=== PATIENT | female | born 1955 | race Caucasian/White ===

== ENCOUNTER 2021-07-21 20:40 | Emergency (ER) | payer MEDICARE, OTHER, SELFPAY ==
[2021-07-21 20:40] VITALS: BP 176/71; PULSE 66; RESP 18; TEMP 36.6; O2SAT 95; BMI 33.3
--- NOTE | 2021-07-21 21:35 | RAD_ITS ---
STUDY: X-RAY - LUMBAR SPINE REASON FOR EXAM: Female, 65 years old. Injury/Pain TECHNIQUE: AP, lateral, coned-down lateral view(s) of the lumbar spine were obtained. COMPARISON: None FINDINGS: Normal lumbar lordosis. There is no substantial scoliosis. There is a normal alignment of the vertebrae. There is multilevel endplate spondylosis of the lumbar vertebrae, moderate to severe L4-5 and L5-S1. There is multi-level degenerative disc disease with multi-level disc space narrowing, most prominent at L4-5 and L5-S1. There is no demonstrated fracture. There is atherosclerotic calcification of the abdominal aorta without a demonstrated aneurysm. Right upper quadrant surgical clips. RAD/Lumbar Spine 2 or 3 Views IMPRESSION: No acute abnormal finding in the lumbar spine. Degenerative changes of the spine, as detailed above. Electronically Signed: Nick Cage MD at 22:29 EDT Tel , Service support ,
[2021-07-21] MEDS: Morphine 4 MG/ML Syringe IM (22:07)
--- NOTE | 2021-07-21 23:38 | EDS_ITS ---
HPI History of Present Illness Chief Complaint: Back Informant: patient Onset/Context/Timing Onset: Weeks Timing: Continuous Quality: Sharp and Aching Location: Lumbar Current Severity: Severe Worsened by: improves with Movement Relieved by: Nothing Associated Symptoms Associated Symptoms: Negative for Numbness, Tingling, Radiation to Right Leg, Radiation to Left Leg, Fever, Abdominal Pain, Dysuria, Unable to Ambulate, Unable to Transfer, Urinary Retention, Urinary Incontinence, Constipation and Fecal Incontinence Narrative Narrative: Patient presents with back pain that became worse today. Patient states she has had back pain for several weeks. Patient states it has been constant. Patient states the pain is over the lower lumbar area. Patient states her pain is worse with any movement. Patient denies any radiation of the pain. Patient denies any abdominal pain. Patient denies any bowel or bladder changes. Patient denies any saddle anesthesia. Patient denies any trauma or injury. [facility] Medical History Epilepsy Home Medications citalopram 20 mg PO DAILY 07/01/16 [History Last Taken Unknown] famotidine 20 mg PO DAILY 07/01/16 [History Last Taken Unknown] levetiracetam 500 mg PO BID 07/01/16 [History Last Taken Unknown] levothyroxine 137 mcg PO DAILY 07/01/16 [History Last Taken Unknown] oxycodone-acetaminophen 1 tab PO Q4H PRN PRN #12 tab 07/01/16 [Rx Last Taken Unknown] phenytoin sodium extended 100 mg PO TID 07/01/16 [History Last Taken Unknown] triamterene-hydrochlorothiazid 1 cap PO DAILY 07/01/16 [History Last Taken Unknown] Allergy/AdvReac Type Severity Reaction Status Date / Time Penicillins Allergy Rash Verified 07/21/21 20:43 no surgical history Social History Smoking Status: Never smoker ROS ROS ED Constitutional Constitutional ED: Denies chills or fever(s) Eyes Eyes: Denies blurry vision or change in vision ENT ENT ED: Denies rhinorrhea or sore throat Cardiovascular Cardiovascular: Denies chest pain or palpitations Respiratory/Chest Respiratory/Chest: Denies cough or dyspnea Gastrointestinal Gastrointestinal: Denies nausea or vomiting Genitourinary Genitourinary ED: Denies dysuria or hematuria Musculoskeletal Musculoskeletal: Reports back pain; Denies neck pain Integumentary Denies abscess or rash Neurologic Neurologic: Denies headache(s) or weakness Allergic/Immunologic Allergic/Immunologic ED: Denies mouth swelling or urticaria EXAM Physical Exam Const Vital Signs: 07/21/21 20:40 Temperature 97.9 F Temperature Source Temporal Pulse Rate 66 Respiratory Rate 18 Blood Pressure 176/71 H Blood Pressure Mean 106 Pulse Ox 95 Oxygen Delivery Method Room Air Positive well nourished and well developed General Appearance ED: well developed HEENT Reports moist mucous membranes Neck supple and no JVD Back/Spine Back/Spine Narrative: There is tenderness over the lower lumbar spine and paraspinal muscles. There is no edema or ecchymosis. There is no bony crepitance or step-off. Range of motion was limited in all motions of the lumbar spine secondary to pain. Strength is 5/5 bilaterally in the lower extremities. There are no sensory deficits noted. Neuro oriented x3 and no sensory deficits noted Sensorium / Orientation: alert Motor Exam: strength 5/5 throughout Psych mental status grossly normal MDM MDM MDM Narrative Medical decision making narrative: X-rays of the lumbar spine were obtained. There are 3 views. On my interpretation, there are degenerative changes. There is no acute fracture or spondylolisthesis noted. Radiologist also interpreted the x-rays and agrees. Patient was given an injection of morphine here. Pat ient was feeling better on reevaluation. Patient was instructed use ice to the area. Patient was instructed to follow-up with her primary care physician in 5 to 7 days. Patient understood and was agreeable with the plan. All questions were answered. Radiography Diagnostic Testing: Radiology Impression Lumbar Spine X-Ray 07/21/21 21:35 IMPRESSION: No acute abnormal finding in the lumbar spine. Degenerative changes of the spine, as detailed above. Electronically Signed: Nick aCge MD at 22:29 EDT Tel , Service support , Discharge Plan Triage Chief Complaint: Back ED Provider: Jay Cortez Dx/Rx/DC Orders Clinical Impression: Acute low back pain Instructions: ED Back Pain (Acute or Chronic) Prescriptions: No Action levothyroxine 137 MCG tablet 137 mcg PO DAILY RF: 0 levetiracetam 500 MG tablet 500 mg PO BID RF: 0 phenytoin sodium extended 100 MG capsule 100 mg PO TID RF: 0 triamterene-hydrochlorothiazid 1 CAP capsule 1 cap PO DAILY RF: 0 citalopram 20 MG tablet 20 mg PO DAILY RF: 0 famotidine 20 MG tablet 20 mg PO DAILY RF: 0 oxycodone-acetaminophen 1 TABLET tablet 1 tab PO Q4H PRN PRN (Reason: Pain) Qty: 12 RF: 0 Primary Care Provider: Leland Correia Referrals: Leland Correia DO [Primary Care Provider] - 3-5 Days Disposition Disposition: Home, Self Care Discharge Date/Time: 07/21/21 23:54
== END 2021-07-21 23:54 | disposition home or self-care (01) ==
PROVIDERS: Emergency Provider Emergency Medicine; PCP Family Medicine
DX: M54.5 Low back pain (principal)
CPT/HCPCS: 72100; 96372; 99282

== ENCOUNTER 2022-03-04 17:30 | Inpatient (IN) | payer MEDICARE, OTHER, SELFPAY ==
[2022-03-04 17:59] VITALS: BP 157/72; PULSE 75; RESP 16; TEMP 36.7; O2SAT 95; BMI 34.6
[2022-03-04 19:46] VITALS: O2SAT 95
[2022-03-04 20:20] VITALS: BP 113/51; PULSE 73; RESP 18; TEMP 36.6; O2SAT 91
[2022-03-04] MEDS: Atenolol 25 MG Tablet PO (21:29)
[2022-03-04] MEDS: Senna/Docusate Sodium 1 Tablet 2 TABLET PO (21:29)
[2022-03-04] MEDS: Acetaminophen 500 MG Tablet 1000 MG PO (21:29)
[2022-03-04] MEDS: levETIRAcetam 750 MG Tablet 1500 MG PO (21:29)
[2022-03-04] MEDS: oxyCODONE 5 MG Tablet PO (21:30)
[2022-03-05] MEDS: oxyCODONE 5 MG Tablet PO ×4 (03:53→22:42)
[2022-03-05] MEDS: Acetaminophen 500 MG Tablet 1000 MG PO ×3 (05:41→20:15)
[2022-03-05] MEDS: Levothyroxine 150 MCG Tablet PO (05:44)
[2022-03-05 05:56] LABS: Hematocrit 31.8 % (37-47); Hemoglobin 10.8 g/dL (12.0-15.0); Mean Corpuscular Hgb 30.9 pg (27.0-32.0); Mean Corpuscular Volume 91.1 fL (81-99); Mean Platelet Vol. 10.4 fl (6.2-12.0); Platelet Count 147 K/mm3 (150-450); RBC Distribution Width SD 42.5 fl (35.1-43.9); Red Blood Count 3.49 M/mm3 (4.2-5.4); White Blood Count 7.3 K/mm3 (4.4-11.0)
[2022-03-05 06:33] LABS: ALB/GLOB Ratio 0.6 RATIO (0.9-2.4); AST(SGOT) 102 U/L (15-37); Alanine Aminotransfer ALT/SGPT 50 U/L (13-56); Albumin, Serum 2.4 g/dL (3.2-5.0); Alkaline Phosphatase 161 U/L (45-117); Anion Gap 4 (5-15); BUN 11 mg/dL (7-18); Calcium,Total 8.2 mg/dL (8.5-10.1); Chloride 104 mmol/L (98-107); Creatinine, Serum 0.61 mg/dL (0.55-1.02); EST Glomerular Filtration Rate 104 mL/min (>60); Est Glom Filt Rate - Afr Amer 126 mL/min (>60); Estimated Creatinine Clearance 62.55 ml/min; Globulin 4.1 g/dL (2.2-4.2); Glucose 138 mg/dL (74-106); Phosphorus 1.8 mg/dL (2.5-4.9); Potassium 3.5 mmol/L (3.5-5.1); Protein, Total 6.5 g/dL (6.4-8.2); Sodium Level 140 mmol/L (136-145)
[2022-03-05 06:54] LABS: Phenytoin (Dilantin) Level 18.1 mL (10.0-20.0)
[2022-03-05 07:00] VITALS: O2SAT 92
[2022-03-05] MEDS: Aspirin 81 MG TAB.CHEW PO (07:42)
[2022-03-05 07:44] VITALS: BP 140/57; PULSE 67; RESP 16; TEMP 36.3; O2SAT 92
[2022-03-05] MEDS: Pantoprazole Sodium 20 MG Tablet PO (09:28)
[2022-03-05] MEDS: Senna/Docusate Sodium 1 Tablet 2 TABLET PO ×2 (09:28→20:16)
[2022-03-05] MEDS: Citalopram 20 MG Tablet PO (09:28)
[2022-03-05] MEDS: levETIRAcetam 750 MG Tablet 1500 MG PO ×2 (09:28→20:15)
--- NOTE | 2022-03-05 11:41 | PCM.HP.STD ---
HPI - General General Date of Admission: 03/04/22 HPI Narrative CHRIS JUAN, is a 66 YO F who presented to an outside ED on 02/28/22 after a fall at home getting out of a chair. She did not lose consciousness but, she had immediate neck pain. She had no new numbness, pain or weakness in the upper extremities. She had previously fractured her neck and had a fusion of C1-C3. Per the records I reviewed she has had falls in the past related to Dilantin toxicity. She tells me that she has not had a seizure in a long time. Her Angel confirms this. She does not see a neurologist and her PCP manages her antiepileptic drugs. The Dilantin level was high at the previous hospital and the medication is still on hold. A CT scan of the Cervical spine in the ED revealed new fractures at C5 and C6 and she was taken to surgery for a fusion. Post operatively she was seen by therapy and admission to an acute rehab unit was recommended. she was transferred to the acute inpt rehab unit at [facility] on 03/04/22 for 3 hours of therapy daily to restore function/independence at or near her prior level of function. Follow up with a shoe folder was recommended for cognitive dysfunction. She denies feeling lightheaded prior to the fall and tells me that when she stood up from sitting at the computer (the chair was on wheels) she fell backwards. Prior to recent fall she was using a FWW or a cane. She has 3 steps to enter her home and she has 2 HR's to use. Her sets up her pill boxes for her but, he tells me that she is capable of doing it herself. She sometimes forgets names. [facility] Medical History (Updated 03/06/22 @ 11:[address] Mandy Garcia DO) Acquired hypothyroidism Alopecia Colon polyps Epilepsy Fall History of impaired glucose tolerance History of major depression HTN (hypertension) Left ovarian cyst Obesity (BMI 30.0-34.9) Osteoarthritis Seizure disorder Home Medications citalopram 20 mg PO DAILY 07/01/16 [History Last Taken Unknown] levetiracetam 1,500 mg PO BID 07/01/16 [History Last Taken Unknown] phenytoin sodium extended 100 mg PO BID 07/01/16 [History Last Taken Unknown] aspirin [Baby Aspirin] 81 mg PO DAILY 03/04/22 [History Last Taken Unknown] atenolol 25 mg PO QHS 03/04/22 [History Last Taken Unknown] ergocalciferol (vitamin D2) [Vitamin D2] 1,250 mcg PO QWEEK 03/04/22 [History Last Taken Unknown] levothyroxine 150 mcg PO DAILY 03/04/22 [History Last Taken Unknown] omeprazole 20 mg PO DAILY 03/04/22 [History Last Taken Unknown] oxycodone 5 mg PO Q6H PRN 03/04/22 [History Last Taken Unknown] Allergy/AdvReac Type Severity Reaction Status Date / Time Penicillins Allergy Rash Verified 07/21/21 20:43 Family History (Updated 03/06/22 @ 11:[address] Mandy Garcia DO) Sister Diabetes CVA (cerebral vascular accident) Hypertension Mother Cirrhosis non-alcoholic Diabetes Brother Suicide suicide at age 39 Other COPD (chronic obstructive pulmonary disease) Surgical History (Updated 03/06/22 @ 11:[address] Mandy Garcia DO) Cataract extraction status Cervical vertebral fusion H/O drainage of abscess History of cholecystectomy S/P cervical spinal fusion Social History (Updated 03/05/22 @ 12:[address] Mandy Garcia DO) household members: spouse Smoking Status: Never smoker alcohol intake: current details: moderate ROS Constitutional Constitutional: Denies anorexia, change in weight, chills, fatigue, fever(s), night sweats or weakness Eyes Eyes: Denies blurry vision, change in vision, eye pain or loss of vision ENT HEENT: Reports hoarseness, nasal congestion, nasal discharge, rhinorrhea and other Details: COLEMAN - comes and goes, located in the Left buddhism area. Denies visual changes/jaw claudication and muscles weakness. ; Denies abnormal hearing, dysphagia, headache(s), hearing loss or sore throat Cardiovascular Cardiovascular: Denies chest pain, dyspnea on exertion, edema, lightheadedness, orthopnea, palpitations, paroxysmal nocturnal dyspnea or syncope Respiratory/Chest Respiratory/Chest: Denies cough, dyspnea, shortness of breath at rest, shortness of breath with exertion or wheezing Gastrointestinal Gastrointestinal: Denies abdominal pain, constipation, diarrhea, dyspepsia, hematemesis, hematochezia, nausea or vomiting Genitourinary Genitourinary: Denies dysuria, hematuria, nocturia, urinary frequency, urinary hesitancy, urinary incontinence or urinary urgency Musculoskeletal Musculoskeletal: Reports back pain and joint pain; Denies joint swelling, neck pain or tingling Integumentary Integumentary: Reports alopecia; Denies pruritus, rash, skin ulcer or unusual bruising Neurologic Neurologic: Reports headache(s), seizures and other Details: Has not had a seizure for a very long time. Having some problems with memory and cognitive function per the previous hospital....ST is the process of evaluating. ; Denies confusion, disequilibrium, dizziness, focal weakness, paresthesias or tremor(s) Psychiatric Psychiatric: Reports other Details: She has had depression in the past and was put on citalopram which she is still taking. She denies Depression at the present time. Tells me that she is sleeping well and has a good appetite. ; Denies anxiety, depression, homicidal ideation or suicidal ideation Endocrine Endocrinology: Denies change in body appearance, polydipsia or polyuria Hematologic/Lymphatic Hematologic/Lymphatic: Denies easy bleeding, easy bruising or lymphadenopathy Allergic/Immunologic Allergic/Immunologic: Denies rhinitis, eczemia or asthma Vital Signs Vital Signs Vital Signs: 03/04/22 17:59 03/04/22 19:46 03/04/22 20:20 Temperature 98.0 F 98 F Temperature Source Oral Oral Pulse Rate 75 73 Respiratory Rate 16 18 Blood Pressure 157/72 H 113/51 L Blood Pressure Mean 100 71 Blood Pressure Source Monitor Monitor Blood Pressure Position Semi-Fowlers Sitting Blood Pressure Location Left Arm Right Arm Pulse Ox 95 95 91 Oxygen Delivery Method Room Air Room Air Room Air 03/05/22 07:00 03/05/22 07:44 Temperature 97.4 F L Temperature Source Oral Pulse Rate 67 Respiratory Rate 16 Blood Pressure 140/57 H Blood Pressure Mean 84 Blood Pressure Source Monitor Blood Pressure Position Semi-Fowlers Blood Pressure Location Left Arm Pulse Ox 92 92 Oxygen Delivery Method Room Air Room Air Weight Weight: 160 lb Body Mass Index (BMI) 34.6 Physical Exam Const alert, oriented x3 and no apparent distress Constitutional Narrative: Making good eye contact, gruff with a hoarse voice. General Appearance: cooperative, comfortable and well developed HEENT normocephalic HEENT Narrative: very dry mucous membranes Head and Scalp: normal to inspection Teeth and Gingiva: other Other Details: She has her own teeth and no dentures Eyes EOMs intact bilaterally, conjunctivae normal and no scleral icterus Eyes Narrative: She has anisocoria with the R pupil being pinpoint and the left 3 -4mm.....she tells me that she has had this since . No visual field cuts. Neck Neck Narrative: She is in a rigid Clive cervical collar which greatly limits this exam. General: trachea midline Resp normal respiratory effort, no use of accessory muscles and clear to auscultation bilaterally Resp Narrative: Not tachypneic and no conversational dyspnea. she was unable to sit forward for me to listen to the BS's posteriorly......will re-examine tomorrow when she is standing with therapy. Cardio regular rate, regular rhythm, S1 normal heart sound, S2 normal heart sound, no murmurs, no rub and no gallops Cardio Narrative: heart sounds are distant GI normal to inspection, nondistended, normoactive bowel sounds and non-tender GI Narrative: No guarding with palpation. Extremity no clubbing, cyanosis or edema, no calf tenderness and no pedal edema Extremity Narrative: The Left shoulder has an ice pack on it to help with pain relief. Skin Skin Narrative: No rashes, no skin breakdown. Neuro oriented x3, CN's II-XII intact bilaterally and no focal motor deficits Motor Exam: strength 5/5 throughout Psych affect normal Psych Narrative: Appropriate, making good eye contact. Able to stay on topic and focus. No flight of ideas. Does not appear anxious or depressed. She is cooperative. not restless. No psychomotor slowing. She is a bit gruff. Seems to be a little angry but, this may be her personality and will continue to observe. Results Lab / Micro Data Result Diagrams: 03/05/22 05:46 03/05/22 05:46 Labs: Laboratory Results - last 24 hr 03/05/22 05:46: WBC 7.3, RBC 3.49 L, Hgb 10.8 L, Hct 31.8 L, MCV 91.1, MCH 30.9, MCHC 34.0, RDW Std Deviation 42.5, RDW Coeff of Ana 13.0, Plt Count 147 L, MPV 10.4 03/05/22 05:46: Sodium 140, Potassium 3.5, Chloride 104, Carbon Dioxide 32.0, Anion Gap 4 L, BUN 11, Creatinine 0.61, Estim Creat Clear Calc 62.55, Est GFR (MDRD) Af Amer 126, Est GFR (MDRD) Non-Af 104, BUN/Creatinine Ratio 18.0, Glucose 138 H, Calcium 8.2 L, Phosphorus 1.8 L, Magnesium 2.0, Total Bilirubin 0.80, AST 102 H, ALT 50, Alkaline Phosphatase 161 H, Total Protein 6.5, Albumin 2.4 L, Globulin 4.1, Albumin/Globulin Ratio 0.6 L 03/05/22 05:46: Phenytoin 18.1 Assessment & Plan Assessment/Plan (1) Physical debility: (2) Fall: QUALIFIERS: Encounter type: subsequent encounter Qualified Code(s): W19.XXXD - Unspecified fall, subsequent encounter (3) C5 cervical fracture: QUALIFIERS: Encounter type: subsequent encounter Fracture type: closed (4) C6 cervical fracture: (5) S/P cervical spinal fusion: (6) Dilantin toxicity: QUALIFIERS: Encounter type: subsequent encounter Injury intent: undetermined intent Qualified Code(s): T42.0X4D - Poisoning by hydantoin derivatives, undetermined, subsequent encounter (7) Acute blood loss anemia: (8) Thrombocytopenia: (9) Left shoulder pain: QUALIFIERS: Chronicity: acute Qualified Code(s): M25.512 - Pain in left shoulder (10) Hypophosphatemia: (11) Seizure disorder: (12) Acquired hypothyroidism: (13) History of major depression: (14) HTN (hypertension): QUALIFIERS: Hypertension type: primary hypertension Qualified Code(s): I10 - Essential (primary) hypertension (15) Alopecia: (16) Anisocoria: (17) Muscle spasm: (18) Acute low back pain: QUALIFIERS: Back pain laterality: unspecified Sciatica presence: without sciatica Qualified Code(s): M54.50 - Low back pain, unspecified (19) History of impaired glucose tolerance: PLAN: PLAN PT for gait stability OT for ADL's ST for evaluation Analgesics as needed Bowel protocol Fall precautions Assess for Anxiety/Depression GI prophylaxis with pantoprazole DVT prophylaxis with Lovenox Follow up with (see below) following DC from IP Rehab AM lab including CMP, CBC, Mag and Phos - all were personally reviewed. RX arthritis compounded cream to the L shoulder for pain control Follow up: 1. Dr. Jem Marie (neurology) - 1-2 weeks following DC from rehab for seizures. 2. [facility] Trauma service in 1 week........will need to follow up AFTER DC from rehab 3. Dr. Frank Shrestha - 10 days. Will follow up following DC from rehab - orthopedics spine surgery 4. schedule an appt with geriatrics for evaluation 5. Contact neurosurgery and see if we can remove the rigid collar for bathing her and if she can use a soft collar when she is in bed. The rigid collar is causing her a lot of discomfort. Unit Exclusion This patient is an acute care inpatient being housed in the excluded unit because of capacity issues related to the disaster or emergency.: Yes Charges/Coding Visit Charges Inpatient E&M: 65436 Init Hosp L3
[2022-03-05 13:40] LABS: Thyroid Stim Hormone (TSH) 1.04 uIU/mL (0.358-3.74)
--- NOTE | 2022-03-05 17:07 | PCM.RU.PYE ---
Admission Information Primary Diagnosis:: Debility due to a recent fall resulting in a fracture of C5 and C6. She is S/P cervical fusion. Status Changes from Prescreening?: No changes Identified Actual Problem List:: Falls, Skin Intergrity, Pain, ALteration in Cmfrt, Cognitve Impr/Memory Loss, Depression, Mobility Impaired, Self Care Deficit and Alteration-Leisure Activ. Potential Problem List:: DVT, Bleeding, Infection, UTI, Aspiration, Falls, Skin Integrity and Depression Risk of Complications DVT: LMWH and CHARAN Hose Bleeding: Monitor Lab Values, Nursing to Teach Precautions for anti-coagulation therapy., Wound, if applicable, to be assessed every shift. and Stroke patients assessed for lethargy or change in status. Infection: Clinical Staff to Monitor for S/S of infection: and S/S of infection include fever, redness, warmth, etc. Urinary Tract Infection: Monitor for frequency, burning, discomfort, or incontinence. and Nursing will obtain urine sample for urinalysis and C&S when ordered. Aspiration: Clinical staff will monitor for coughing, drooling, congestion., Speech will evaluate swallowing and dsyphasia. and Nursing will monitor patient swallowing during meals. Falls: Patient will be evaluated for Fall Precautions and Patient will be placed on Fall Precautions as indicated per protocol. Skin Breakdown: Nursing will assess skin daily using assessment tool. and Nursing will place on Skin Breakdown Precautions as indicated. Pain: Clinical staff will assess patient's pain level per protocol., Medications will be given, if needed, and the pain level reassessed. and Other methods: Massage, distraction, decrease stimulus, etc. used PRN. Plan of Care Patient requires physician specializing in physical medicine and rehab oversight to provide close medical supervision of rehab issues including: Pain Management, Sleep Problems, Bowel and Bladder, Medical and co-morbidity Management, DVT prophylaxis, Rehabilitation Leadership and Coordination of treatment team Patient needs Physical Therapy: For a minimum of 1 hour and At least 5 out of 7 days Patient needs Physical Therapy to improve:: Mobility, Strengthening, Transfers, Stretching, ROM, Endurance, Stairs, Gait and Balance Patient needs Occupational Therapy: For a minimum of 1 hour and At least 5 out of 7 days Patient needs Occupational Therapy to improve ADL's incl.: Eating, Grooming, Bathing, Dressing, Toileting, Toilet transfers, Community Reintegration, Higher functioning activities, Household tasks, Adaptive Equipment, Splinting and Other activities as determined Patient requires speech therapy: For a minimum of 1 hour and At least 5 out of 7 days Patient requires speech therapy for: Swallowing, Cognition, Language Skills and Compensatory Strategies Patient requires 24/ Rehabilitation Nursing for: Pain Issues, Identifying and preventing risk factors, Monitoring and reporting current medical conditions, Assisting with ambulation, transfer, and all ADL's, Teaching patients about disease process and medications, Family teaching, Providing safe environment, Bowel and Bladder Issues, Skin integrity and Medication Management Patient needs Tax Collector/ Case Management for: Discharge Planning, Arranging Home Equipment or Services and Family Interventions Patient needs Dietary and Nutrition Services for: Adequate Nutrition, Nutritional Supplements and Nutritional Education Goals Patient will remain: free from falls and or injury at time of discharge. Patient will perform bed mobility at: MOD I level of assist. Patient will complete transfers from bed to chair at: MOD I level of assist. Patient will ambulate: with LRD and - (150 ft at MOD I with the LRD) Patient will complete upper body dressing at: - (grooming ad Upper body dressing tasks at set up level ) Patient will complete lower body dressing at: - (Minimal assistance with use of adaptive equipment) Patient will complete toileting at: - (SUP/SBA) Patient will perform bathing at: - (min assist) Patient will complete grooming at: MOD I level of assist. Patient will complete home management skills at: - (minimal assist ) Patient will achieve: - (1 curb step and 3 regular steps with BL handrails at SHIRA) Patient will have pain level of: of 3 or less Patient's skin will: remain intact Patient will receive: adequate nutrition. Discharge Planning Pt Prognosis for Sig. Practical Improv. w/in Reasonable Time: Good Estimated Length of stay (days): 21 Anticipated D/C Destination: Home with Outpt Therapy Was Preadmission Assessment Accurate?: Yes
[2022-03-05] MEDS: Magnesium Hydroxide 30 ML UDC PO (18:25)
[2022-03-05 19:43] VITALS: BP 164/64; PULSE 74; RESP 18; TEMP 36.8; O2SAT 93
[2022-03-05] MEDS: Atenolol 25 MG Tablet PO (20:15)
[2022-03-05] MEDS: Arthritis Pain Compound 60 CLICK TUBE TOPICAL (20:16)
[2022-03-05] MEDS: Na Biphos/Potassium Phosphate PACKET 1 PACKET PO (20:22)
--- NOTE | 2022-03-06 01:09 | NURSING ---
Patient restless this night. Moving between the bed and chair multiple times. Repositioning attempted. Patient currently resting with eyes closed. Call light in reach.
--- NOTE | 2022-03-06 02:39 | NURSING ---
Staff in room to assist with repositioning pt for comfort. Pt c/o wearing the aspen collar and states when she lies in bed, the collar is digging into her. Pt agreeable to repositioning and states she found comfort in new position.
[2022-03-06] MEDS: Bisacodyl 10 MG Suppository RC (05:11)
[2022-03-06] MEDS: Acetaminophen 500 MG Tablet 1000 MG PO ×3 (05:16→20:00)
[2022-03-06] MEDS: oxyCODONE 5 MG Tablet PO ×3 (05:16→23:40)
[2022-03-06] MEDS: Na Biphos/Potassium Phosphate PACKET 1 PACKET PO ×3 (05:17→19:59)
[2022-03-06] MEDS: Enoxaparin 40 MG/0.4 ML Syringe SC (05:18)
[2022-03-06] MEDS: Arthritis Pain Compound 60 CLICK TUBE TOPICAL ×3 (05:19→20:01)
[2022-03-06 07:28] VITALS: BP 129/92; PULSE 74; RESP 19; TEMP 36.8; O2SAT 93
[2022-03-06] MEDS: levETIRAcetam 750 MG Tablet 1500 MG PO ×2 (08:23→19:59)
[2022-03-06] MEDS: Aspirin 81 MG TAB.CHEW PO (08:23)
[2022-03-06] MEDS: Citalopram 20 MG Tablet PO (08:23)
[2022-03-06] MEDS: Senna/Docusate Sodium 1 Tablet 2 TABLET PO (08:24)
[2022-03-06] MEDS: Pantoprazole Sodium 20 MG Tablet PO (08:24)
--- NOTE | 2022-03-06 10:27 | NURSING ---
Patient complaint of 6/10 pain with muscle spasms/cramping in the left upper arm radiating to left lower forearm. Spoke with 1 time dose of 10 mg Baclofen to be ordered.
[2022-03-06] MEDS: Baclofen 10 MG Tablet PO (11:10)
--- NOTE | 2022-03-06 11:54 | PN_ITS ---
Progress Note Afebrile VSS Maintaining appropriate oxygen saturation on RA Oral intake is good Discussed with nursing - She is inappropriate at times and is yelling at staff. She is c/o pain from the [place] collar and wants us to take it off. Reviewed the PT/OT/ST notes - The CLQT was completed by the ST today and I reviewed the results. Medication list reviewed. Hemoglobin A1c is 6.0 She is c/o spasms in the Left upper arm. This started after she was in the BR and the OT noted that she had been heavily leaning on the walker. She was given a 10 tab of Baclofen which she stated did not help. When I re-evaluated her she had tenderness to palpation in the L triceps......which makes sense she she is extending her arms and leaning heavily on the walker. There is no redness, no rash and no swelling. The pain is not burning and when she was sitting in the straight backed chair with her feet on a stool the pain was better. Ice did not improve. We applies the arthritis cream to the triceps and she stated that did not help. There is no numbness in the RUE. She is moving her arm with no restriction. She scored severe impairment in attention, moderate impairment in memory, severe impairment of executive functioning, mild impairment of language, severe impairment of visual spatial skills, severe impairment of clock drawing and the composite severity rating was 1.6 which is consistent with moderate impairment. she has no impairment of swallowing. She has limited awareness of her cognitive deficits. The neurosurgeon's office was called to ask if we could use a soft collar when she is lying down in bed but, so far the call has not been returned.....a VM was left today by the charge nurse. Impressions 1. Muscle strain Left triceps - did not get adequate relief with Baclofen, arthritis cream, ice, Oxycodone and Acetaminophen. She is blaming everything on the [place] collar and does not want to keep it on. I told her that until we hear from the neurosurgeon it has to stay on. She threatened to leave and I told her we could not keep her against her will and if she wanted to be discharged I could not stop her BUT, it would be AMA. Will try a K pad and also order a Lidocaine patch to see if that helps with the pain. 2. 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 She tells me that she does not like neurologists because she has had a bad experience with a neurologist. Dr. Correia is currently managing the antiepileptic medications. She has now had cervical fractures on 2 different occasions attributed to Dilantin toxicity and she has had other falls that did not result in fracture. I explained to her and her that she needs to follow up with neurology......she has not had a seizure in a long time per Sandra and her and she may no longer need this much medication. She should not be managing her medications with moderate cognitive dysfunction and she needs to follow up with a special event assistant to be evaluated for the cognitive function. She did not sleep well last night and she gets easily agitated......may need to consider a small dose of Seroquel at HS to control behavior. Will continue to monitor for now but, if the night does not go well tonight will start Seroquel.......will put in a PRN order for tonight. Repeat Phenytoin, albumin and a phos are ordered for tomorrow AM. Visit Charges Inpatient E&M: 52850 Subs Hosp L2
--- NOTE | 2022-03-06 15:02 | NURSING ---
message left for surgeons office regarding neck brace. per dr mukherjee, she was wondering if pt could take off collar for hygiene purposes and possibly wear a soft collar while in bed. awaiting return call from surgeon's office.
[2022-03-06] MEDS: Lidocaine 5% Patch 1 PATCH TOPICAL (17:48)
[2022-03-06 18:52] VITALS: BP 136/68; PULSE 66; RESP 16; TEMP 36.8; O2SAT 96
[2022-03-06 19:45] VITALS: PULSE 66; RESP 16; O2SAT 96
[2022-03-06] MEDS: Atenolol 25 MG Tablet PO (20:00)
[2022-03-06] MEDS: Phenytoin Na 100 MG Capsule PO (20:01)
[2022-03-06] MEDS: QUEtiapine 25 MG Tablet 12.5 MG PO (23:24)
--- NOTE | 2022-03-06 23:30 | NURSING ---
2300 pt had been pleasant and cooperative with clinical findings being completed and was assisted into the bed . staff placed call light next to pts lt arm for easy reach. pt stated that she uses the one on the bed rail. pt also declined any hs care when offered stating that she just wanted to go to bed . pt had been resting soundly until now and then was yelling out she needed help, when staff to investigate pt reports that that no one showed her how to use that call light when pt had been using is properly during the day. pt was showed and 2minutes later put on her call light stating that she threw her blankets off and needed them to be put back on , seroquel given as per order. 2340 pt continues to yell out, then rings for assistance and reports that her arm is hurting pt given oxyir and offered k-pad or ice.
--- NOTE | 2022-03-06 23:42 | NURSING ---
PRN Oxy given for 10/10 arm pain. Patient repositioned and ice removed per request. Denies additional needs. Call light in reach.
--- NOTE | 2022-03-07 01:42 | NURSING ---
staff called into room for any number of reasons this hs thus far. Pt calls to alert staff that she threw her blankets off and is cold now! Pt requires multiple repositioning needs. Pt reports discomfort and staff has attempted to accommodate ailments that continue to arise. Staff was just in room to assist with repositioning needs. Will continue to monitor. PRN Seroquel given this hs.
--- NOTE | 2022-03-07 01:49 | NURSING ---
Reviewed and agree with DEVELOPER PROVER UPHOLSTERING documentation and assessment charting.
--- NOTE | 2022-03-07 02:02 | NURSING ---
Staff returns to room after being called to change position of the pillow. Pt can be heard moaning in bed a few minutes after staff leaves room.
--- NOTE | 2022-03-07 02:11 | NURSING ---
Patient heard calling out. This nurse responds. Patient stating that she is uncomfortable and that her back hurts. Patient taken to bathroom and repositioned her in recliner. KPAD in place. Call light within reach. Denies additional needs.
[2022-03-07] MEDS: Arthritis Pain Compound 60 CLICK TUBE TOPICAL ×3 (05:59→19:48)
[2022-03-07] MEDS: Enoxaparin 40 MG/0.4 ML Syringe SC (05:59)
[2022-03-07] MEDS: Na Biphos/Potassium Phosphate PACKET 1 PACKET PO ×3 (05:59→19:49)
[2022-03-07] MEDS: Acetaminophen 500 MG Tablet 1000 MG PO ×3 (06:03→19:49)
[2022-03-07] MEDS: oxyCODONE 5 MG Tablet PO ×2 (06:03→12:37)
[2022-03-07 06:21] LABS: Albumin, Serum 2.6 g/dL (3.2-5.0); Phenytoin (Dilantin) Level 11.5 mL (10.0-20.0)
[2022-03-07 06:24] LABS: Phosphorus 3.5 mg/dL (2.5-4.9)
[2022-03-07] MEDS: Citalopram 20 MG Tablet PO (08:11)
[2022-03-07] MEDS: Aspirin 81 MG TAB.CHEW PO (08:11)
[2022-03-07] MEDS: Pantoprazole Sodium 20 MG Tablet PO (08:11)
[2022-03-07] MEDS: Lidocaine 5% Patch 1 PATCH TOPICAL ×2 (08:11→14:36)
[2022-03-07] MEDS: Phenytoin Na 100 MG Capsule PO ×2 (08:11→19:48)
[2022-03-07] MEDS: levETIRAcetam 750 MG Tablet 1500 MG PO ×2 (08:11→19:49)
[2022-03-07 08:18] VITALS: BP 156/63; PULSE 61; RESP 16; TEMP 36.6; O2SAT 95
--- NOTE | 2022-03-07 11:45 | PCM.PN.BLA ---
Progress Note Afebrile VSS - BP's are mildly elevated. Maintaining appropriate oxygen saturation on RA Oral intake is good Discussed with nursing - see below. Reviewed the PT/OT/ST notes Medication list reviewed. She only took The phenytoin level today is 11.5 with an albumin of 2.6. The phenytoin level corrected for hypoalbuminemia is 14.1. Phosphorous is normal now following supplementation. She has had no seizures. She is once again c/o Left shoulder pain. She wants to go home and she wants to take the collar off......we have not heard back from Dr. Shrestha's office yet. Tells me that she did not sleep well last night.....she attributes this to the cervical collar. She is a little tearful today and is not making good eye contact. I asked if she is depressed and she answered wouldn't you be?. She has been emotionally labile and doing some acting out. She is taking Citalopram for a hx of depression. I gave a verbal order to the ASSISTANT SUPERINTENDENT to hold Phenytoin until the level was rechecked today but apparently only a few doses were held and she got 100 mg last night and 100 mg this AM. She did get 12.5 mg of Seroquel last night for agitation. She used the call lights several times again last night. She has good ROM in the LUE and no pain with passive movement. The pain is reproducible today with palpation of the biceps tendon on the left. There is no erythema of the left shoulder and I do not appreciate any increase in the warmth. She grimaced when I rolled my finger over the biceps tendon. Impressions 1. Left shoulder pain - suspect due to biceps tendonitis. Will change the lidocaine patch and have it applied over the Biceps tendon. Continue the arthritis cream to the Left shoulder TID. will discuss with OT where they can do some bedside therapeutic US to help. Prednisone 20 mg daily X 3 days. Oxycodone 10 mg Q HS and DC the Seroquel and transition to 50 mg of Trazodone. Get an XRAY of the left shoulder to make sure there is no fracture related to her fall. 2. Cognitive dysfunction - Continue ST - she is unaware of any deficits but, is agreeable to working with the ST 3. Seizure disorder - I spoke with the CREDIT CARD ASSOCIATE from Dr. Pepe's office and she is going to come up to rehab just for a meet and greet with Sandra on Saturday afternoon. Sandra is agreeable to this. If after the meet and greet she is willing to see Dr. Pepe (with the CREDIT CARD ASSOCIATE in the room) then will schedule an appt and have Dr. Pepe manage the AED's. 4. she has been on Dilantin a long time. She is on a Vitamin D supplement but, Dilantin is associated with bone loss and low Vitamin D levels. Will check a level now and recommend that she have a bone density exam as an OP post DC. 5. Will discuss follow up with a disaster or damage control specialist post DC if she is agreeable following DC. Visit Charges Inpatient E&M: 99029 Subs Hosp L2
--- NOTE | 2022-03-07 13:10 | RAD_ITS ---
STUDY: X-RAY - LEFT SHOULDER REASON FOR EXAM: Female, 66 years old. Pain after a fall TECHNIQUE: 2 view(s) of the shoulder. COMPARISON: None. FINDINGS: There is mild degenerative arthrosis of the glenohumeral articulation. There is degenerative arthrosis of the acromioclavicular joint without inferior osseous spur formation. Normal acromion. Normal humeral head and visualized proximal humerus. The soft tissue structures are unremarkable. Normal visualized pulmonary apex. RAD/Shoulder min 2 Views IMPRESSION: Degenerative changes. No acute abnormality is seen. Electronically Signed: Aristeo Granado MD at 15:24 EDT ,
[2022-03-07 13:37] LABS: Phenytoin (Dilantin) Level 13.8 mL (10.0-20.0); Vitamin D,25 Hydroxy 50.8 ng/mL
[2022-03-07] MEDS: predniSONE 20 MG Tablet PO (14:36)
[2022-03-07 19:21] VITALS: BP 136/69; PULSE 66; RESP 18; TEMP 36.3; O2SAT 94
--- NOTE | 2022-03-07 19:24 | NURSING ---
[place] collar removed per order of Dr. Shrestha's office and soft collar applied at all times. ok to remove for hygiene purposes. Dressing removed. 29 landy intact with scabbing. no active drainage noted. cleansed with soap and water and ABD applied for pad and protection with paper tape. shower cap used to get excess adhesive and old, dry blood off of pt's head. pt tolerated procedure well. denies pain or discomfort at thsi time. call light within reach, denies further needs.
[2022-03-07 19:40] VITALS: PULSE 66; RESP 18; O2SAT 94
[2022-03-07] MEDS: oxyCODONE 5 MG Tablet 10 MG PO (19:49)
[2022-03-07] MEDS: Atenolol 25 MG Tablet PO (19:49)
[2022-03-07] MEDS: Senna/Docusate Sodium 1 Tablet 2 TABLET PO (19:50)
[2022-03-07] MEDS: traZODone 50 MG Tablet PO (21:47)
--- NOTE | 2022-03-08 02:42 | NURSING ---
Reviewed and agree with YOUTH COURT JUDGE documentation and assessment charting.
[2022-03-08] MEDS: Enoxaparin 40 MG/0.4 ML Syringe SC (04:32)
[2022-03-08] MEDS: Acetaminophen 500 MG Tablet 1000 MG PO ×3 (04:32→21:11)
[2022-03-08] MEDS: Arthritis Pain Compound 60 CLICK TUBE TOPICAL ×3 (04:33→20:25)
[2022-03-08 07:48] VITALS: BP 163/63; PULSE 55; RESP 18; TEMP 36.3; O2SAT 95
[2022-03-08] MEDS: levETIRAcetam 750 MG Tablet 1500 MG PO ×2 (08:28→20:24)
[2022-03-08] MEDS: Citalopram 20 MG Tablet PO (08:28)
[2022-03-08] MEDS: Aspirin 81 MG TAB.CHEW PO (08:28)
[2022-03-08] MEDS: predniSONE 20 MG Tablet PO (08:28)
[2022-03-08] MEDS: Pantoprazole Sodium 20 MG Tablet PO (08:28)
[2022-03-08] MEDS: Senna/Docusate Sodium 1 Tablet 2 TABLET PO ×2 (08:29→20:23)
[2022-03-08] MEDS: Lidocaine 5% Patch 1 PATCH TOPICAL ×2 (08:29→09:47)
[2022-03-08] MEDS: Phenytoin Na 100 MG/4 ML UDC 50 MG PO (08:29)
[2022-03-08] MEDS: oxyCODONE 5 MG Tablet PO ×2 (08:40→16:29)
--- NOTE | 2022-03-08 16:54 | PN_ITS ---
Subjective Subjective Sandra was seen on team rounds today. Her Angel participated by phone. Afebrile VSS-blood pressure is frequently mildly elevated. Her only antihypertensive is atenolol 25 mg nightly. The heart rate has ranged from 55-74 since her admission. Maintaining appropriate oxygen saturation on RA Oral intake is good Discussed with nursing - no problems that need addressed Reviewed the PT/OT/ST notes Medication list reviewed. Sandra tells me that the pain in her left shoulder is better with the add ition of prednisone to the drug regimen for 3 days and also the application of a lidocaine patch over the left biceps tendon. She will receive ultrasound therapy from the occupational therapist today over the left shoulder. She tells me that she slept better last night. She is more comfortable with the soft collar on. She denies CP, SOB, calf pain, chills, dysuria and lightheadedness. alert, appropriate today lungs - CTA HRRR abd - soft and NT with normal BS's no rashes and no skin breakdown The posterior neck incision is intact with no sign of infection/purulent drainage. Impressions 1. fall resulting in fx of C5 and C6. She previously fell and broke C1 and C2 and had a fusion. This time C3-7 was fused. Both times she was Dilantin toxic. 2. Dilantin Toxicity - resolve and she has been started on a reduced dose of Dilantin 3. The PA from neurology is coming up for a meet and greet with Sandra tomorrow and if all goes well she will follow up with Dr. Pepe/Roseanne Braun in the future to manage the epileptic medications 4. Vitamin D level is normal on the current supplement so will continue. I recommended she ask Dr. Correia to order a bone density study post DC from rehab. Objective Data Objective Data Vital Signs: Vital Signs Temp Pulse Resp BP Pulse Ox 97.3 F L 55 L 18 163/63 H 95 03/08/22 07:48 03/08/22 07:48 03/08/22 07:48 03/08/22 07:48 03/08/22 07:48 Oxygen Delivery Method Room Air Weight: 160 lb 0.889 oz Body Mass Index (BMI) 34.6 Intake & Output: Intake and Output for Last 24 Hours 03/06/22 03/07/22 03/08/22 23:59 23:59 23:59 Intake Total 840 / 840 Balance 840 / 840 Lab / Micro Data Result Diagrams: 03/05/22 05:46 03/05/22 05:46 Charges/Coding Visit Charges Inpatient E&M: 81854 Subs Hosp L2
--- NOTE | 2022-03-08 18:06 | CASEMGMT ---
Social Work IDT met with patient and via conference call for Team meeting. Discussed patient's progress in PT/OT/ST and nursing. Pt making progress. Explained Medicare approved 15 days with DC 03/18. The goal is for pt to return home with . IDT recommending 24/06 supervision. will be home / and can assist. Inquired about completing advanced directives. and pt agreed to not complete at this time. Will ReTeam. SW to continue to follow. Genna Mcleod MSW CUSTOM MARINE CANVAS FABRICATOR
[2022-03-08 19:28] VITALS: BP 153/59; PULSE 67; RESP 18; TEMP 36.5; O2SAT 96
[2022-03-08] MEDS: Atenolol 25 MG Tablet PO (20:23)
[2022-03-08] MEDS: traZODone 50 MG Tablet PO (20:25)
[2022-03-08] MEDS: Phenytoin Na 100 MG Capsule PO (20:25)
[2022-03-08] MEDS: oxyCODONE 5 MG Tablet 10 MG PO (21:53)
[2022-03-09] MEDS: oxyCODONE 5 MG Tablet PO ×3 (02:40→20:07)
[2022-03-09 05:49] LABS: Hematocrit 34.4 % (37-47); Hemoglobin 11.4 g/dL (12.0-15.0)
[2022-03-09 06:19] LABS: Anion Gap 4 (5-15); BUN 14 mg/dL (7-18); BUN/Creat Ratio 20.2 RATIO (10-20); Calcium,Total 8.5 mg/dL (8.5-10.1); Chloride 107 mmol/L (98-107); Creatinine, Serum 0.69 mg/dL (0.55-1.02); EST Glomerular Filtration Rate 90 mL/min (>60); Est Glom Filt Rate - Afr Amer 108 mL/min (>60); Estimated Creatinine Clearance 62.57 ml/min; Glucose 124 mg/dL (74-106); Sodium Level 140 mmol/L (136-145)
[2022-03-09] MEDS: Arthritis Pain Compound 60 CLICK TUBE TOPICAL ×3 (06:21→23:33)
[2022-03-09] MEDS: Enoxaparin 40 MG/0.4 ML Syringe SC (06:21)
[2022-03-09] MEDS: Acetaminophen 500 MG Tablet 1000 MG PO ×3 (06:21→23:37)
[2022-03-09 07:37] VITALS: BP 154/56; PULSE 56; RESP 18; TEMP 36.4; O2SAT 94
[2022-03-09] MEDS: Phenytoin Na 100 MG/4 ML UDC 50 MG PO (08:53)
[2022-03-09] MEDS: Lidocaine 5% Patch 1 PATCH TOPICAL ×2 (08:53)
[2022-03-09] MEDS: Pantoprazole Sodium 20 MG Tablet PO (08:54)
[2022-03-09] MEDS: Lisinopril 2.5 MG Tablet PO (08:54)
[2022-03-09] MEDS: Citalopram 20 MG Tablet PO (08:54)
[2022-03-09] MEDS: predniSONE 20 MG Tablet PO (08:54)
[2022-03-09] MEDS: Ergocalciferol 1.25 MG (50, 000 UNIT) Capsule PO (08:54)
[2022-03-09] MEDS: Aspirin 81 MG TAB.CHEW PO (08:54)
[2022-03-09] MEDS: levETIRAcetam 750 MG Tablet 1500 MG PO ×2 (08:54→23:34)
[2022-03-09] MEDS: Senna/Docusate Sodium 1 Tablet 2 TABLET PO ×2 (08:54→23:36)
[2022-03-09] MEDS: Nystatin Powder 15gm Bottle 1 APPLIC TOPICAL ×2 (08:55→23:36)
[2022-03-09 21:41] VITALS: BP 142/61; PULSE 68; RESP 18; TEMP 36.7; O2SAT 93
[2022-03-09 23:29] VITALS: BP 141/57; PULSE 63; RESP 16; TEMP 36.6; O2SAT 92
[2022-03-09] MEDS: oxyCODONE 5 MG Tablet 10 MG PO (23:32)
[2022-03-09] MEDS: traZODone 50 MG Tablet PO (23:35)
[2022-03-09] MEDS: Atenolol 25 MG Tablet PO (23:36)
[2022-03-09] MEDS: Phenytoin Na 100 MG Capsule PO (23:36)
[2022-03-10] MEDS: Enoxaparin 40 MG/0.4 ML Syringe SC (06:19)
[2022-03-10] MEDS: Acetaminophen 500 MG Tablet 1000 MG PO ×3 (06:19→21:49)
[2022-03-10] MEDS: Arthritis Pain Compound 60 CLICK TUBE TOPICAL ×3 (06:19→21:48)
[2022-03-10 07:50] VITALS: BP 146/75; PULSE 55; RESP 18; TEMP 36.2; O2SAT 97
[2022-03-10] MEDS: Lidocaine 5% Patch 1 PATCH TOPICAL ×2 (10:12→10:14)
[2022-03-10] MEDS: Citalopram 20 MG Tablet PO (10:19)
[2022-03-10] MEDS: oxyCODONE 5 MG Tablet PO ×2 (10:19→16:24)
[2022-03-10] MEDS: levETIRAcetam 750 MG Tablet 1500 MG PO ×2 (10:19→21:49)
[2022-03-10] MEDS: Lisinopril 2.5 MG Tablet PO (10:19)
[2022-03-10] MEDS: Pantoprazole Sodium 20 MG Tablet PO (10:19)
[2022-03-10] MEDS: Phenytoin Na 100 MG/4 ML UDC 50 MG PO (10:20)
[2022-03-10] MEDS: Aspirin 81 MG TAB.CHEW PO (10:20)
[2022-03-10] MEDS: Nystatin Powder 15gm Bottle 1 APPLIC TOPICAL ×2 (10:24→21:49)
[2022-03-10 19:25] VITALS: BP 115/63; PULSE 54; RESP 17; TEMP 36.3; O2SAT 97
[2022-03-10] MEDS: traZODone 50 MG Tablet PO (21:48)
[2022-03-10] MEDS: Phenytoin Na 100 MG Capsule PO (21:48)
[2022-03-10] MEDS: oxyCODONE 5 MG Tablet 10 MG PO (21:49)
[2022-03-10] MEDS: Atenolol 25 MG Tablet PO (21:49)
--- NOTE | 2022-03-11 02:26 | NURSING ---
REVIEWED AND AGREE WITH RADIO PERFORMER'S FUNCTIONAL ASSESSMENT AND HANDOFF CHARTING.
[2022-03-11] MEDS: Arthritis Pain Compound 60 CLICK TUBE TOPICAL ×3 (05:14→20:12)
[2022-03-11] MEDS: Acetaminophen 500 MG Tablet 1000 MG PO ×2 (05:15→20:14)
[2022-03-11] MEDS: Enoxaparin 40 MG/0.4 ML Syringe SC (05:15)
[2022-03-11] MEDS: Phenytoin Na 100 MG/4 ML UDC 50 MG PO (08:08)
[2022-03-11] MEDS: levETIRAcetam 750 MG Tablet 1500 MG PO ×2 (08:08→20:13)
[2022-03-11] MEDS: Aspirin 81 MG TAB.CHEW PO (08:08)
[2022-03-11] MEDS: Lisinopril 2.5 MG Tablet PO (08:08)
[2022-03-11] MEDS: Pantoprazole Sodium 20 MG Tablet PO (08:08)
[2022-03-11] MEDS: Citalopram 20 MG Tablet PO (08:08)
[2022-03-11] MEDS: Lidocaine 5% Patch 1 PATCH TOPICAL ×2 (08:09→08:15)
[2022-03-11 08:13] VITALS: BP 121/88; PULSE 58; RESP 18; TEMP 36.6; O2SAT 96
[2022-03-11] MEDS: Nystatin Powder 15gm Bottle 1 APPLIC TOPICAL ×2 (08:13→20:21)
[2022-03-11 19:31] VITALS: BP 129/54; PULSE 60; RESP 15; TEMP 35.6; O2SAT 94
[2022-03-11] MEDS: traZODone 50 MG Tablet PO (20:12)
[2022-03-11] MEDS: Atenolol 25 MG Tablet PO (20:13)
[2022-03-11] MEDS: Phenytoin Na 100 MG Capsule PO (20:13)
[2022-03-11] MEDS: oxyCODONE 5 MG Tablet 10 MG PO (20:21)
[2022-03-12] MEDS: Enoxaparin 40 MG/0.4 ML Syringe SC (05:33)
[2022-03-12] MEDS: Arthritis Pain Compound 60 CLICK TUBE TOPICAL ×3 (05:33→20:27)
[2022-03-12] MEDS: Acetaminophen 500 MG Tablet 1000 MG PO ×3 (05:34→20:25)
[2022-03-12 07:37] VITALS: BP 111/48; PULSE 56; RESP 16; TEMP 36.1; O2SAT 94
[2022-03-12] MEDS: Lisinopril 2.5 MG Tablet PO (09:17)
[2022-03-12] MEDS: Aspirin 81 MG TAB.CHEW PO (09:17)
[2022-03-12] MEDS: Citalopram 20 MG Tablet PO (09:17)
[2022-03-12] MEDS: Pantoprazole Sodium 20 MG Tablet PO (09:17)
[2022-03-12] MEDS: Lidocaine 5% Patch 1 PATCH TOPICAL ×2 (09:17→09:18)
[2022-03-12] MEDS: Phenytoin Na 100 MG/4 ML UDC 50 MG PO (09:17)
[2022-03-12] MEDS: levETIRAcetam 750 MG Tablet 1500 MG PO ×2 (09:17→20:27)
[2022-03-12] MEDS: Nystatin Powder 15gm Bottle 1 APPLIC TOPICAL ×2 (09:25→20:29)
--- NOTE | 2022-03-12 10:53 | PN_ITS ---
Subjective Subjective Afebrile VSS-her heart rate is generally in the 50s. BP's are good. Maintaining appropriate oxygen saturation on RA Oral intake is good Discussed with nursing - no problems that need addressed Reviewed the PT/OT/ST notes Medication list reviewed. All lab was personally reviewed. The Dilantin level today is 7.0. When corrected for hypoalbuminemia the Dilantin level is 8.12. She had a episode in rehab today when her eyes rolled back and she lost posture.....she was assisted to the floor. The BP was 95 systolic AFTER she had been lying down a few minutes. She told me immediately after where she was and did not seem post ictal. There was no tonic clonic activity per the staff. She was not incontin ent and she did not bite her tongue. Pulse ox was normal. After she got up orthostatics were done and they were negative but, the BP was significantly higher than it had been when she was lying on the floor. She does not remember feeling lightheaded prior to the syncope vs seizure event. she had ambulated the loop in the the hallway twice and then did the Nustep and then had been standing for 5-8 minutes prior to the event. She was not injured. The last event prior to the most recent admission was sun she stood up after sitting at the computer for a long time. These events are not associated with incontinence, tonic clonic activity or biting her tongue. She tells me that the pain in the left shoulder has resolved. Her only complaint to me today is her left thumb hurts and it does this sometimes at home. Objective Data Objective Data Vital Signs: Vital Signs Temp Pulse Resp BP Pulse Ox 96.9 F L 56 L 16 111/48 L 94 03/12/22 07:37 03/12/22 07:37 03/12/22 07:37 03/12/22 07:37 03/12/22 07:37 Oxygen Delivery Method Room Air Weight: 160 lb 4.417 oz Body Mass Index (BMI) 34.6 Intake & Output: Intake and Output for Last 24 Hours 03/10/22 03/11/22 03/12/22 23:59 23:59 23:59 Intake Total 600 / 600 1080 / 1080 240 / 240 Output Total 250 / 250 Balance 600 / 600 830 / 830 240 / 240 Lab / Micro Data Result Diagrams: 03/09/22 05:41 03/09/22 05:41 Labs: Laboratory Results - last 24 hr 03/12/22 05:36: Phenytoin 7.0 L Physical Exam Const Constitutional Narrative: Immediately following the event she was alert and responsive and she knew where she was. General Appearance: cooperative Eyes PERRL, EOMs intact bilaterally, conjunctivae normal and no scleral icterus Neck No nuchal rigidity and supple Neck Narrative: no pain in the neck or the head Chest Chest: symmetrical chest wall rise Resp normal respiratory effort and clear to auscultation bilaterally Cardio regular rate, regular rhythm and no gallops Cardio Narrative: No ectopy GI normal to inspection, nondistended, normoactive bowel sounds, soft to palpation and non-tender Extremity no calf tenderness and no pedal edema Skin General Skin Exam: no breakdown Rashes: no rashes Assessment & Plan Assessment/Plan (1) Breakthrough seizure: (2) Subtherapeutic serum dilantin level: PLAN: 1. Increase the Dilantin to 100 mg of ER BID. Give an extra dose of 200 mg of short acting now. I do not think she had a seizure......maybe the falls are not due to Dilantin toxicity.....maybe she has postural insufficiency.......the most recent fall happened after she had been sitting for a long time at the computer and then she stood up. I am going to recommend she have a tilt table test post DC. She has agreed to follow up with Dr. Pepe post discharge and I suspect this will be very beneficial. 2. Recheck a Dilantin level on Saturday. 3. Avoid prolonged standing with therapy for now. 4. she may not be having seizures - she may be having syncope. 5. Continue the seizure precautions. Charges/Coding Visit Charges Inpatient E&M: 86879 Subs Hosp L2
[2022-03-12 11:01] VITALS: BP 127/63; BP 131/59; BP 135/53; PULSE 62; PULSE 63; PULSE 69
[2022-03-12 11:03] VITALS: BP 92/56; PULSE 59; RESP 18; O2SAT 95
[2022-03-12] MEDS: Phenytoin Na 100 MG Capsule 200 MG PO (11:21)
--- NOTE | 2022-03-12 11:50 | NURSING ---
Addendum entered by Tanya Walter 03/12/22 16:35: pt reports no other episodes of dizziness or lightheadedness since this morning. assisted to the restroom without difficulty. will continue to monitor. Original Note: pt had and episode where her eyes rolled back in her head while working with therapy. She was lowered to the floor x2 therapists. Denied SOB or CP. No injuries were sustained. BP was 92/56, HR WNL. Dr Garcia was made aware, 200mg x1 dose of Dilantin and 100mg Dilantin BID was order. Orthostatic blood pressures were ordered and completed they were WNL. Pt was assisted to her recliner with no further c/o dizziness or lightheadedness.
[2022-03-12] MEDS: oxyCODONE 5 MG Tablet PO (15:58)
[2022-03-12 20:12] VITALS: BP 107/58; PULSE 63; RESP 18; TEMP 36.7; O2SAT 94
[2022-03-12] MEDS: Atenolol 25 MG Tablet PO (20:25)
[2022-03-12] MEDS: oxyCODONE 5 MG Tablet 10 MG PO (20:26)
[2022-03-12] MEDS: Senna/Docusate Sodium 1 Tablet 2 TABLET PO (20:26)
[2022-03-12] MEDS: Phenytoin Na 100 MG Capsule PO (20:26)
[2022-03-12] MEDS: traZODone 50 MG Tablet PO (20:27)
[2022-03-13] MEDS: Arthritis Pain Compound 60 CLICK TUBE TOPICAL ×3 (05:11→21:05)
[2022-03-13] MEDS: Enoxaparin 40 MG/0.4 ML Syringe SC (05:12)
[2022-03-13] MEDS: Acetaminophen 500 MG Tablet 1000 MG PO ×3 (05:12→21:03)
[2022-03-13 07:41] VITALS: BP 166/53; PULSE 57; RESP 16; TEMP 36.3; O2SAT 94
[2022-03-13] MEDS: Aspirin 81 MG TAB.CHEW PO (08:42)
[2022-03-13] MEDS: Lisinopril 2.5 MG Tablet PO (08:42)
[2022-03-13] MEDS: Citalopram 20 MG Tablet PO (08:42)
[2022-03-13] MEDS: Pantoprazole Sodium 20 MG Tablet PO (08:42)
[2022-03-13] MEDS: levETIRAcetam 750 MG Tablet 1500 MG PO ×2 (08:42→21:04)
[2022-03-13] MEDS: Phenytoin Na 100 MG Capsule PO ×2 (08:42→21:04)
[2022-03-13] MEDS: Lidocaine 5% Patch 1 PATCH TOPICAL (08:42)
[2022-03-13] MEDS: Nystatin Powder 15gm Bottle 1 APPLIC TOPICAL (08:43)
[2022-03-13] MEDS: Senna/Docusate Sodium 1 Tablet 2 TABLET PO ×2 (08:46→21:04)
[2022-03-13] MEDS: oxyCODONE 5 MG Tablet PO (14:19)
[2022-03-13 19:38] VITALS: BP 134/66; PULSE 63; RESP 16; TEMP 36.2; O2SAT 94
[2022-03-13 20:50] VITALS: PULSE 63; RESP 16; O2SAT 94
[2022-03-13] MEDS: Atenolol 25 MG Tablet PO (21:04)
[2022-03-13] MEDS: traZODone 50 MG Tablet PO (21:04)
[2022-03-13] MEDS: oxyCODONE 5 MG Tablet 10 MG PO (21:04)
--- NOTE | 2022-03-14 02:27 | NURSING ---
Reviewed and agree with GEOMETRY TEACHER documentation and assessment charting.
[2022-03-14] MEDS: Acetaminophen 500 MG Tablet 1000 MG PO ×3 (05:38→21:05)
[2022-03-14] MEDS: Arthritis Pain Compound 60 CLICK TUBE TOPICAL ×3 (05:38→21:05)
[2022-03-14] MEDS: Enoxaparin 40 MG/0.4 ML Syringe SC (05:38)
[2022-03-14 07:48] VITALS: BP 135/64; PULSE 57; RESP 17; TEMP 36.5; O2SAT 96
[2022-03-14] MEDS: Aspirin 81 MG TAB.CHEW PO (08:29)
[2022-03-14] MEDS: levETIRAcetam 750 MG Tablet 1500 MG PO ×2 (08:29→21:05)
[2022-03-14] MEDS: Citalopram 20 MG Tablet PO (08:29)
[2022-03-14] MEDS: Pantoprazole Sodium 20 MG Tablet PO (08:29)
[2022-03-14] MEDS: Lisinopril 2.5 MG Tablet PO (08:30)
[2022-03-14] MEDS: Phenytoin Na 100 MG Capsule PO ×2 (08:30→21:04)
[2022-03-14] MEDS: Senna/Docusate Sodium 1 Tablet 2 TABLET PO ×2 (08:30→21:04)
[2022-03-14] MEDS: oxyCODONE 5 MG Tablet PO (15:34)
[2022-03-14 21:00] VITALS: BP 141/57; PULSE 85; RESP 16; TEMP 36.7; O2SAT 98
[2022-03-14] MEDS: traZODone 50 MG Tablet PO (21:05)
[2022-03-14] MEDS: oxyCODONE 5 MG Tablet 10 MG PO (21:06)
[2022-03-14] MEDS: Atenolol 25 MG Tablet PO (21:07)
[2022-03-15] MEDS: Arthritis Pain Compound 60 CLICK TUBE TOPICAL ×4 (05:40→20:40)
[2022-03-15] MEDS: Acetaminophen 500 MG Tablet 1000 MG PO ×3 (05:40→20:39)
[2022-03-15] MEDS: Enoxaparin 40 MG/0.4 ML Syringe SC (05:40)
--- NOTE | 2022-03-15 07:23 | NURSING ---
REVIEWED AND AGREE WITH SERVICES PROGRAM MANAGER'S FUNCTIONAL ASSESSMENT AND HANDOFF CHARTING.
[2022-03-15] MEDS: Nystatin Powder 15gm Bottle 1 APPLIC TOPICAL (07:58)
[2022-03-15] MEDS: Pantoprazole Sodium 20 MG Tablet PO (07:59)
[2022-03-15] MEDS: Phenytoin Na 100 MG Capsule PO ×2 (07:59→20:39)
[2022-03-15] MEDS: Lisinopril 2.5 MG Tablet PO (07:59)
[2022-03-15] MEDS: Citalopram 20 MG Tablet PO (07:59)
[2022-03-15] MEDS: Senna/Docusate Sodium 1 Tablet 2 TABLET PO ×2 (07:59→20:39)
[2022-03-15] MEDS: levETIRAcetam 750 MG Tablet 1500 MG PO ×2 (07:59→20:39)
[2022-03-15] MEDS: Aspirin 81 MG TAB.CHEW PO (07:59)
[2022-03-15 08:02] VITALS: BP 131/59; PULSE 53; RESP 16; TEMP 36.5; O2SAT 95
--- NOTE | 2022-03-15 11:43 | PCM.PROGNOTE ---
Subjective Subjective Sandra was seen on TEAM rounds today. Her awas not present today. Afebrile VSS-heart rate in the a.m. is in the 50s however the heart rate the remainder of the day is within normal limits. Blood pressure is well controlled. Maintaining appropriate oxygen saturation on RA Oral intake is good Last bowel movement was 03/14/2022 Discussed with nursing - no problems that need addressed Reviewed the PT/OT/ST notes Medication list reviewed. Reports that the pain in her neck is much better. She had another event this afternoon (after rounds) and it was witnessed by the ST. She quit talking, turned her head at an odd angle and stuck her R arm out. The ST called for help and in less than a minute the nurse and I were in the room. She still had her arm stuck out when the nurse walked in but, not when I came a few secs later. She initially did not respond when I talked to her but within 30 secs she was alert and oriented and back to normal. She had no tonic clonic activity and she did not bite her tongue. She was not incontinent. She denied cephalgia. She did not recall what happened. She denied neck pain. Objective Data Objective Data Vital Signs: Vital Signs Temp Pulse Resp BP Pulse Ox 97.7 F L 53 L 16 131/59 H 95 03/15/22 08:02 03/15/22 08:02 03/15/22 08:02 03/15/22 08:02 03/15/22 08:02 Oxygen Delivery Method Room Air Weight: 160 lb 4.417 oz Body Mass Index (BMI) 34.6 Intake & Output: Intake and Output for Last 24 Hours 03/13/22 03/14/22 03/15/22 23:59 23:59 23:59 Intake Total 200 / 200 Balance 200 / 200 Lab / Micro Data Result Diagrams: 03/16/22 05:38 03/16/22 05:38 Physical Exam Const alert, oriented x3 and no apparent distress HEENT normocephalic and head/scalp atraumatic Eyes EOMs intact bilaterally Eyes Narrative: has anisocoria Resp clear to auscultation bilaterally Cardio regular rate and regular rhythm Cardio Narrative: BP was again has dropped significantly from the BP this morning following the event. GI normal to inspection, nondistended, normoactive bowel sounds, soft to palpation and non-tender Extremity no calf tenderness and no pedal edema Skin General Skin Exam: no breakdown Rashes: no rashes Neuro oriented x3, CN's II-XII intact bilaterally, moves all extremities, no focal motor deficits and no sensory deficits noted Assessment & Plan Assessment/Plan (1) Heme positive stool: PLAN: 1. Recheck the HH, phenytoin level and a BMP in the AM on 03/16 2. Plan on DC for 03/18. Will be discharged home. 3. Tilt table test post DC and also a 30 day event monitor. 4. F/U with Dr. Pepe and also with Dr. Correia and Dr. Shrestha post discharge Charges/Coding Visit Charges Inpatient E&M: 95151 Subs Hosp L2
[2022-03-15 13:49] VITALS: BP 108/54; PULSE 59; RESP 17; O2SAT 91
--- NOTE | 2022-03-15 13:49 | NURSING ---
Speech therapy notified nursing staff that pt's eyes looked off and pt's head went to the side with R arm extended out to the side while in recliner during therapy session. JOSEP Eugene notified this RN and Dr. Gracia. Dr Garcia responds to bedside with nursing staff. pt's arm relaxes and dr garcia assess pt. pt remains oriented. vital signs obtained and charted. pt stable. pt has call light within reach. denies further needs at this time.
--- NOTE | 2022-03-15 14:46 | CASEMGMT ---
Social Work IDT met with patient for Team meeting. Discussed patient's progress in PT/OT/ST and nursing. Pt progressing well. Pt and IDT agreeable to DC home with who will be providing 24/06 supervision on 03/18. to transport. Pt agreeable to HHC. Provided skilled HHC list with quality data. [facility] .Referral made for PT/OT/SN. ST not recommended at DC. No DME needs. Plan: DC home 03/18 with , [facility] PT/OT/SN ESTER JainW
[2022-03-15 19:22] VITALS: BP 136/79; PULSE 98; RESP 16; TEMP 36.6; O2SAT 98
[2022-03-15 20:30] VITALS: PULSE 98; RESP 16
[2022-03-15] MEDS: Atenolol 25 MG Tablet PO (20:39)
[2022-03-15] MEDS: traZODone 50 MG Tablet PO (20:40)
[2022-03-15] MEDS: oxyCODONE 5 MG Tablet PO (23:52)
--- NOTE | 2022-03-16 02:17 | NURSING ---
Reviewed and agree with TRIMMING ASSEMBLER assessment.
--- NOTE | 2022-03-16 03:10 | NURSING ---
PT AWAKE AND IS TEARFUL AND REPORTS THAT HER LT UPPER ARM IS HURTING AND SHE IS UNABLE TO SLEEP. PT REFUSED HER 2200 SCHEDULED OXYIR D/T NOT HAVING ANY PAIN . STAFF QUESTIONED PT IF SHE WAS SURE DID NOT WANT TO TAKE IT, PT RESPONDED NO I'M NOT HAVING ANY PAIN AT ALL. STAFF STATED TO PT THAT THE OXYIR WOULD NOT BE MARKED OFF UNTIL 2300. AT 2300 PT WAS SLEEPING AND OXYIR WAS MARKED OFF ON THE MAR THAT PT REFUSED AND NOT GIVEN . 2352 PT IS AWAKE AND REPORTS THAT SHE IS HAVING PAIN IN HER LT ARM BUT ITS A 2/10 ON PAIN SCALE RN GAVE PT 5MG OF OXYIR PRN DOSE AT THIS TIME. PT HAS CONTINUED TO BE RESTLESS AND REPORTED INCREASED PAIN TO HER LEFT ARM. [id number] STAFF TO CHECK ON WHEN PT COULD RECEIVE ANY MORE PAIN MEDICATION AND COULD NOT UNTIL 0600. RN MADE AWARE OF PT PAIN AND UNABLE TO MEDICATE PT. PT WAS GIVEN AN ICE PACK TO HELP WITH PAIN CONTROL 0325 RN CALLED HOSPITALIST TO SEE TO 2200 DOSE OF 10MG OF OXYIR BE GIVEN NOW AND ORDER WAS RECEIVED TO DO SO. RN TO GIVE 10MG AT THIS TIME
[2022-03-16] MEDS: oxyCODONE 5 MG Tablet 10 MG PO ×2 (03:40→22:42)
--- NOTE | 2022-03-16 03:45 | NURSING ---
Reviewed and agree with AIR CHIPPER note.
[2022-03-16 06:00] VITALS: BP 142/63; PULSE 64; RESP 18; TEMP 36.1; O2SAT 95
[2022-03-16 06:14] LABS: Hematocrit 37.2 % (37-47); Hemoglobin 12.5 g/dL (12.0-15.0); Mean Corp Hgb Conc 33.6 g/dL (32-36); Mean Corpuscular Hgb 31.9 pg (27.0-32.0); Mean Corpuscular Volume 94.9 fL (81-99); Platelet Count 348 K/mm3 (150-450); RBC Distribution Width CV 14.6 % (11.6-14.6); RBC Distribution Width SD 49.6 fl (35.1-43.9); Red Blood Count 3.92 M/mm3 (4.2-5.4); White Blood Count 8.4 K/mm3 (4.4-11.0)
[2022-03-16 06:15] LABS: Anion Gap 4 (5-15); BUN 18 mg/dL (7-18); BUN/Creat Ratio 24.8 RATIO (10-20); Calcium,Total 8.2 mg/dL (8.5-10.1); Chloride 104 mmol/L (98-107); Creatinine, Serum 0.73 mg/dL (0.55-1.02); EST Glomerular Filtration Rate 85 mL/min (>60); Est Glom Filt Rate - Afr Amer 103 mL/min (>60); Estimated Creatinine Clearance 62.65 ml/min; Glucose 131 mg/dL (74-106); Potassium 4.5 mmol/L (3.5-5.1); Sodium Level 136 mmol/L (136-145)
[2022-03-16] MEDS: Enoxaparin 40 MG/0.4 ML Syringe SC (06:16)
[2022-03-16] MEDS: Acetaminophen 500 MG Tablet 1000 MG PO ×3 (06:17→20:35)
[2022-03-16 06:22] LABS: Phenytoin (Dilantin) Level 7.3 mL (10.0-20.0)
[2022-03-16] MEDS: Citalopram 20 MG Tablet PO (08:21)
[2022-03-16] MEDS: Senna/Docusate Sodium 1 Tablet 2 TABLET PO ×2 (08:21→20:35)
[2022-03-16] MEDS: Ergocalciferol 1.25 MG (50, 000 UNIT) Capsule PO (08:21)
[2022-03-16] MEDS: Aspirin 81 MG TAB.CHEW PO (08:22)
[2022-03-16] MEDS: Pantoprazole Sodium 20 MG Tablet PO (08:22)
[2022-03-16] MEDS: levETIRAcetam 750 MG Tablet 1500 MG PO ×2 (08:22→20:35)
[2022-03-16] MEDS: Phenytoin Na 100 MG Capsule PO (08:22)
[2022-03-16] MEDS: Lisinopril 2.5 MG Tablet PO (08:23)
--- NOTE | 2022-03-16 09:47 | PCM.PN.BLA ---
Progress Note Afebrile VSS Maintaining appropriate oxygen saturation on RA Oral intake is good Discussed with nursing - no problems that need addressed Reviewed the PT/OT/ST notes Medication list reviewed. All lab was personally reviewed. White blood cell count is normal at 8.4 and the hemoglobin is improving and is 12.5 today. Platelet count is within normal limits. Sodium is normal at 136 and the potassium is 4.5. The BUN is 18 and the creatinine is stable at 0.73. Calcium corrected for hypoalbuminemia is within normal limits. The phenytoin level corrected for hypoalbuminemia is 7.7. No further events since yesterday. No complaints. She is happy about going home on Saturday and she is pleasant and talkative and smiling. Denies neck pain. No calf pain, dysuria, CP, SOB. Denies lightheadedness. She did have some left shoulder pain last night but, it resolved with ice. ALert OX3 NAD lungs - CTA HRRR abd - soft and NT no ankle edema Impressions 1. seizure disorder - had a seizure yesterday with no post-ictal state -no tonic clonic activity but she held her arm out to the R and maintained this posture for maybe 1-2 minutes. Did not speak for 1-2 minutes after the event but then was talkative, oriented and appropriate......She did not recall what happened and she was sitting in the recliner talking to the ST at the time. 2. recent fall resulting in a C5 and C6 vertebral fx - unknown if this is due to a seizure, Dilantin toxicity or to syncope due to orthostatic hypotension. 3. S/P fusion C3-7 4. possible orthostatic hypotension and syncope - I am not certain that all the falls are due to seizures or Dilantin toxicity. Plan on ordering a tilt table test at [place] and a 30 day event monitor. Assessment & Plan Assessment/Plan (1) Breakthrough seizure: (2) S/P cervical spinal fusion: (3) C6 cervical fracture: (4) C5 cervical fracture: QUALIFIERS: Encounter type: subsequent encounter Fracture type: closed (5) Thrombocytopenia: (6) Subtherapeutic serum dilantin level: PLAN: 1. Dilantin 300 mg PO now and change the dosing to 100 mg Q AM and 150 mg at HS. Recheck a Dilantin level Saturday. 2. DC Saturday. She will follow up with Dr. Pepe for neurology and with Dr. Correia, her PCP and also with Dr. Romero for neurosurgery. Visit Charges Inpatient E&M: 86647 Subs Hosp L2
[2022-03-16 11:07] LABS: Albumin, Serum 3.1 g/dL (3.2-5.0)
[2022-03-16] MEDS: Phenytoin Na 100 MG Capsule 300 MG PO (14:15)
[2022-03-16] MEDS: Arthritis Pain Compound 60 CLICK TUBE TOPICAL ×2 (14:18→20:34)
[2022-03-16 19:17] VITALS: BP 113/49; RESP 18; TEMP 36.6; O2SAT 98
[2022-03-16] MEDS: Phenytoin Na 100 MG Capsule 150 MG PO (20:36)
[2022-03-16] MEDS: traZODone 50 MG Tablet PO (20:36)
[2022-03-16] MEDS: Atenolol 25 MG Tablet PO (20:36)
--- NOTE | 2022-03-16 22:45 | NURSING ---
This nurse gave pt 5mg of Oxy routine. The order was for 10mg routine at 2200. Went back into [facility] to get the other 5mg and it wouldn't let me have it, and said there was an discrepancy with the count. Called Keri the supervisor of research to help fix it, with [facility] and she couldn't fix it. Keri called the Pharmacy and he could't come fix it, and had no tech to come fix it. So, Keri told to e-mail Santiago
[2022-03-16 23:12] VITALS: O2SAT 95
--- NOTE | 2022-03-17 01:35 | NURSING ---
Reviewed and agree with INDUSTRIAL [employer] WORK[employer] assessment.
[2022-03-17] MEDS: Acetaminophen 500 MG Tablet 1000 MG PO ×3 (05:21→21:48)
[2022-03-17] MEDS: Arthritis Pain Compound 60 CLICK TUBE TOPICAL ×3 (05:22→21:49)
[2022-03-17] MEDS: Enoxaparin 40 MG/0.4 ML Syringe SC (05:22)
[2022-03-17] MEDS: Aspirin 81 MG TAB.CHEW PO (07:35)
[2022-03-17] MEDS: Phenytoin Na 100 MG Capsule PO (07:36)
[2022-03-17 07:50] VITALS: BP 128/72; PULSE 60; RESP 16; TEMP 36; O2SAT 95
[2022-03-17] MEDS: levETIRAcetam 750 MG Tablet 1500 MG PO ×2 (09:28→21:48)
[2022-03-17] MEDS: Citalopram 20 MG Tablet PO (09:29)
[2022-03-17] MEDS: Pantoprazole Sodium 20 MG Tablet PO (09:31)
[2022-03-17] MEDS: Nystatin Powder 15gm Bottle 1 APPLIC TOPICAL (09:31)
[2022-03-17] MEDS: Lisinopril 2.5 MG Tablet PO (09:32)
[2022-03-17] MEDS: Senna/Docusate Sodium 1 Tablet 2 TABLET PO (09:32)
--- NOTE | 2022-03-17 15:43 | DCINST_ITS ---
Discharge Instructions Diet Discharge Diet: - (Regular diet with increased fiber.) Activity Discharge Activity: May Not Drive and May Shower Ice area for (Minutes): 15 Weight Bearing Status: Full weight bearing Dressing / Incision Call your doctor if your incision/area has: Sudden Increased Bleeding, Increased Pain/ Swelling, Increased Redness, Foul Smelling Discharge and Swelling at the incision site Call your doctor if you observe: Fever of 101 or Higher, Numbness or Tingling, Shortness of breath, Dizziness, Fainting spells, Chest pain, Increased p alpitations (irregular heartbeat) and Calf discomfort Suture Line Care: Avoid Pulling/Pushing and Avoid Pinching/Bending Cleanse incision/area with: Soap & Water and - (Can leave open to air or if more comfortable cover the incision with a dry dressing. ) Follow Up Care Please Follow Up With: Dr. Shrestha Test Results: Test results from this visit will be discussed in further detail at your follow-up appointment, if applicable. Pending Tests Upon Discharge: none Discharge Plan Admission Admit Date/Time: 03/04/22 17:30 Primary Reason for Your Visit: Debility due to neck fracture with cervical fusion Attending Provider: Mandy Garcia Primary Care Provider: Leland Correia Instructions Patient Instructions: Epilepsy: Safety During a Seizure, Tilt Table Testing, Orthostatic Hypotension Additional Instructions / Restrictions: 1. You have been a great patient Sandra. You worked hard and we all enjoyed working with you. If you ever need our services again we will be glad to welcome you back. 2. You had 2 events while on rehab. One event was definitely a seizure and the other I am not sure. You had been standing for a long period of time and your eyes rolled back in your head and you were assisted to the floor. You had no seizure activity. In both events your BP was much lower than normal right after the event. It could be that your BP drops or you have a problem with the rhythm of your heart and that is what causes the event. I am going to order a tilt table test. I am giving you some literature to read about this prior to the test so you know what to expect. I am also going to order a monitor that keeps track of your heart rate continuously for 30 days and after that you will see the regional service manager to give you the results. 3. I am going to recommend to Dr. Correia that you have your Dilantin level checked every week for 3-4 weeks in a row to make sure the level is therapeutic and not too high or too low. 4. You are going to see the neurologist after leaving rehab. His name is Dr. Pepe and he is very nice. Dr. Afshin Cronin's physician operator assistant i cementing will be in the room at the time you see Dr. Pepe and after the first visit you will likely just see Roseanne for your appointments. 5. I think we MUST find out why you are having these falls because you have now broken your neck twice. If you are having seizures there are other meds that can be tried and if your fainting because your BP drops when you stand then there are other things that can be done to prevent this. 6. Take care Sandra and if you have any questions after leaving rehab please call me. 7. I am also going to recommend to Dr. Correia that you have a bone density test called a DEXA. We do them here at the hospital since you have had fractures. This will assess you for osteoporosis which weakens the bones and can be treated to strengthen the bones so they do not fracture as easily. Office: [phone] CELL: [phone] Discharge Orders/Prescriptions Prescriptions: New acetaminophen 500 mg Tablet 1,000 mg PO Q8 PRN (Reason: fever or pain) Qty: 0 RF: 0 lidocaine 5 % Adhesive Patch,Medicated 1 patch topical DAILY Qty: 30 RF: 0 lisinopril 2.5 mg Tablet 2.5 mg PO DAILY Qty: 30 RF: 0 oxycodone 5 mg Tablet 5 - 10 mg PO QHS 7 Days Qty: 30 RF: 0 sennosides-docusate sodium [Stool Softener-Stimulant Laxat] 8.6-50 mg Tablet 2 tab PO BID Qty: 120 RF: 0 Biotene Dry Mouth Oral Rinse Mouthwash 15 ml mucous membrane 5X/DAY Qty: 1 RF: 0 trazodone 50 mg Tablet 50 mg PO QHS PRN (Reason: insomnia) Qty: 30 RF: 0 Continued levetiracetam 500 MG tablet 1,500 mg PO BID RF: 0 phenytoin sodium extended 100 MG capsule 100 mg PO BID RF: 0 citalopram 20 MG tablet 20 mg PO DAILY RF: 0 atenolol 25 mg Tablet 25 mg PO QHS RF: 0 levothyroxine 150 mcg Tablet 150 mcg PO DAILY RF: 0 omeprazole 20 mg Capsule,Delayed Release(Dr/Ec) 20 mg PO DAILY RF: 0 aspirin 81 mg Tablet,Chewable 81 mg PO DAILY RF: 0 ergocalciferol (vitamin D2) [Vitamin D2] 1,250 mcg (50,000 unit) Capsule 1,250 mcg PO QWEEK RF: 0 No Action oxycodone 5 mg Tablet 5 mg PO Q6H PRN (Reason: Pain) RF: 0 Referrals / Follow Up: Dr Kenyetta Evans [Other] (Office to call patient to schedule. There is a waitlist at this time. ) Frank Shrestha MD [NON-STAFF] - 03/19/22 2:30 pm (Lashonda to be removed at appt. Please bring discharge summary to appt.) Leland Correia DO [Primary Care Provider] - 03/21/22 10:20 am Mansoor Pepe MD [STAFF PHYSICIAN] - 05/01/22 9:00 am Disposition Disposition (needs filled in before D/C Order can be placed): Home Health Service
--- NOTE | 2022-03-17 16:24 | DS.PCM_ITS ---
Providers Date of Admission: 03/04/22 Date of Discharge: 03/18/22 Primary Care Physician: Dr. Leland Correia DO Reason For Visit: CERVICAL NECK FRACTURE Diagnosis Discharge Diagnosis (1) Physical debility: Status: Acute Code(s): R53.81 - Other malaise (2) Fall: Status: Inactive Code(s): W19.XXXA - Unspecified fall, initial encounter Qualifiers: Encounter type: subsequent encounter Qualified Code(s): W19.XXXD - Unspecified fall, subsequent encounter (3) C6 cervical fracture: Status: Acute Code(s): S12.500A - Unspecified displaced fracture of sixth cervical vertebra, initial encounter for closed fracture Qualifiers: Encounter type: subsequent encounter Fracture morphology: unspecified fracture morphology Fracture type: closed (4) C5 cervical fracture: Status: Acute Code(s): S12.400A - Unspecified displaced fracture of fifth cervical vertebra, initial encounter for closed fracture Qualifiers: Encounter type: subsequent encounter Fracture type: closed (5) S/P cervical spinal fusion: Status: Acute Code(s): Z98.1 - Arthrodesis status (6) Acute blood loss anemia: Status: Acute Code(s): D62 - Acute posthemorrhagic anemia (7) Hypophosphatemia: Status: Resolved Code(s): E83.39 - Other disorders of phosphorus metabolism (8) Dilantin toxicity: Status: Resolved Code(s): T42.0X1A - Poisoning by hydantoin derivatives, accidental (unintentional), initial encounter Qualifiers: Encounter type: subsequent encounter Injury intent: undetermined intent Qualified Code(s): T42.0X4D - Poisoning by hydantoin derivatives, undetermined, subsequent encounter (9) Heme positive stool: Status: Acute Code(s): R19.5 - Other fecal abnormalities (10) Breakthrough seizure: Status: Acute Code(s): G40.919 - Epilepsy, unspecified, intractable, without status epilepticus (11) Thrombocytopenia: Status: Resolved Code(s): D69.6 - Thrombocytopenia, unspecified (12) Subtherapeutic serum dilantin level: Status: Acute Code(s): R78.89 - Finding of other specified substances, not normally found in blood (13) History of impaired glucose tolerance: Status: Chronic Code(s): Z87.898 - Personal history of other specified conditions (14) Seizure disorder: Status: Chronic Code(s): G40.909 - Epilepsy, unspecified, not intractable, without status epilepticus Plan: 1. 30 day event monitor and tilt table test ordered - I suspect not all the falls are due to seizures. BP is low after and event and she may have orthostatic hypotension or a dysrhythmia. 2. Recommend a DEXA going forward if she has not had 1 in the past 2 years 3. Recommend check a Dilantin level weekly for the next 3-4 weeks to make sure she is staying within the therapeutic window. Recommend correcting the phenytoin level for hypoalbuminemia so will need and albumin with the phenytoin level. 4. Will follow up with Dr. Mansoor Pepe, neurologist. 5. Follow up with Dr. Shrestha for the cervical fusion. 6. [facility] 5. Neurology at the previous hospital recommended follow up with a account executive healthcare post discharge from rehab for memory difficulties/cognitive dysfunction. Medications at Discharge Home Medications citalopram 20 mg PO DAILY 07/01/16 levetiracetam 1,500 mg PO BID 07/01/16 phenytoin sodium extended 100 mg PO BID 07/01/16 aspirin 81 mg PO DAILY 03/04/22 atenolol 25 mg PO QHS 03/04/22 ergocalciferol (vitamin D2) [Vitamin D2] 1,250 mcg PO QWEEK 03/04/22 levothyroxine 150 mcg PO DAILY 03/04/22 omeprazole 20 mg PO DAILY 03/04/22 oxycodone 5 mg PO Q6H PRN 03/04/22 acetaminophen 1,000 mg PO Q8 PRN #0 tab 03/17/22 lidocaine 1 patch TOPICAL DAILY #30 ea 03/17/22 lisinopril 2.5 mg PO DAILY #30 tab 03/17/22 oxycodone 5 - 10 mg PO QHS 7 Days #30 tab 03/17/22 saliva substitute combo no.9 [Biotene Dry Mouth Oral Rinse] 15 ml MUCOUS MEMBRANE 5X/DAY #1 ml 03/17/22 sennosides-docusate sodium [Stool Softener-Stimulant Laxat] 2 tab PO BID #120 tab 03/17/22 trazodone 50 mg PO QHS PRN #30 tab 03/17/22 Hospital Course Operations - (Cervical fusion C3-7 for acute fracture of C5 and C6 due to a fall by Dr. Shrestha on 02/28/22) Procedures None Summary of Care Provided Minutes Spent on Discharge: 45 Hospital Course: CHRIS JUAN, is a 66 YO F who presented to an outside ED on 02/28/22 after a fall at home getting out of a chair. She did not lose consciousness but, she had immediate neck pain. She had no new numbness, pain or weakness in the upper extremities. She had previously fractured her neck and had a fusion of C1-C3. Per the records I reviewed she has had falls in the past related to Dilantin toxicity. She tells me that she has not had a s eizure in a long time. Her Angel confirms this. She does not see a neurologist and her PCP manages her antiepileptic drugs. The Dilantin level was high at the previous hospital and the medication was still on hold at admission to rehab. A CT scan of the Cervical spine in the ED revealed new fractures at C5 and C6 and she was taken to surgery for a fusion. Post operatively she was seen by therapy and admission to an acute rehab unit was recommended. She was transferred to the acute inpt rehab unit at [facility] on 03/04/22 for 3 hours of therapy daily to restore function/independence at or near her prior level of function. Follow up with a account executive healthcare was recommended for cognitive dysfunction. She denies feeling lightheaded prior to the fall and tells me that when she stood up from sitting at the computer (the chair was on wheels) she fell backwards. Dilantin level corrected for hypoalbuminemia at admission to the rehab unit was 23 and we continued to hold Dilantin. She was seen and treated by PT/OT/ST during her visit. She had severe pain at admissions to rehab and medications were adjusted to keep her comfortable without sedating her. She had a lot of discomfort with the [place] collar and after a few days a call was placed to Dr. Shrestha and she was transitioned to a soft collar. After her pain was adequately controlled her mood and participation in therapy improved. She was cooperative and progressed well. She had 3 events while in therapy. On way occasion she had been standing for a long time and suddenly she lost posture and was assisted to the floor. She had no tonic clonic activity, did not bite her tongue and she was not incontinent. Her BP after she was lowered to the floor was much lower than it was earlier that morning. She was not post-ictal. She was placed in bed and the BP was back to normal within 10 minutes. On the second episode she was in the chair in her room working with the ST when she suddenly stopped responding and her R arm flung out to the right and stayed there for a minute. When I entered the room she was awake and appropriate. Once again she had no tonic clonic activity, no incontinence, no post ictal period and she did not bite her tongue. She had no recollection of what happened. It is unclear to me if these episodes are seizures or syncope. On the morning of the second event the Dilantin level was less than 10. She was given extra PO Phenytoin and the daily dose was increased to 100 mg BID (she had been on 150 mg BID at home prior to the fall that lead to the neck fracture). A few days later another phenytoin level was checked and it too was less than 10 after being corrected for hypoalbuminemia. She was given 300 mg of Phenytoin as an extra dose and the daily dose was increased to 100 mg in the AM and 150mg at HS. The level on the day of discharge was 11.8 and when corrected for the low albumin it was 12.4. HGB was 10.8 at admission to the rehab unit and prior to DC it had increased to 12.5. Lisinopril was added to her drug regimen for elevated BP and the BP came under good control. On the day of DC the BP was mildly increased at 152/58 with a HR of 65, I suspect she was anxious to get back to her home. She had trouble sleeping and Trazodone 50 mg was added to her drug regimen. She requested a RX at [place] because she had trouble sleeping at night prior to the recent hospital admission. Prior to DC she was able to complete the TUG test in 27.38 sec with a FWW at [facility]. Her goal is < 20 sec and she was making progress toward that goal at [place]. She was able to ascend/descend 5 steps of various heights at contact-guard assist with 2 handrails. She had ambulated 200 feet with a front wheeled walker at contact-guard assist on carpet/uneven surfaces. She needed minimal assistance for grooming and upper body dressing. She still requires minimal assistance for lower body dressing but her has done this in the past. She requires moderate assistance with bathing. She was discharged home on 03/18/22 in good condition. She denied pain at discharge. She will follow up with Dr. Correia for primary care needs. She will follow up with Dr. Shrestha from orthopedic surgery and with Dr. Mansoor Pepe for neurology. Because the etiology of the frequent falls which have now resulted in 2 separate neck fractures/surgeries is still unclear I referred her for a 30 day event monitor and a tilt table test. Results will be sent to Dr. Correia. Chris does not drive. She was instructed not to lift more than 5 lbs and to continue the soft collar anytime she is out of bed until she sees Dr. Shrestha in the office. She was also referred to Dr. Kenyetta Evans for geriatric evaluation for cognitive dysfunction. The neurologist at the previous hospital who has seen her on several occasions for Dilantin toxicity recommended this evaluation. 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 Extraocular muscles are intact. The conjunctiva is not injected and she has no scleral icterus. There is no exophthalmos. Neck General: trachea midline; Negative for anterior neck swelling Chest Chest: symmetrical chest wall rise Resp normal respiratory effort, normal air movement, no use of accessory muscles and clear to auscultation bilaterally Effort and Inspection: able to speak in complete sentences Cardio regular rate, regular rhythm, S1 normal heart sound, S2 normal heart sound, no murmurs, no rub and no gallops Cardio Narrative: No ectopy GI normal to inspection, nondistended, normoactive bowel sounds, soft to palpation and non-tender GI Narrative: No guarding with palpation Extremity no calf tenderness and no pedal edema Skin General Skin Exam: no breakdown Rashes: no rashes Wound Narrative: The posterior cervical incision is intact with no dehiscence, no erythema, no purulent discharge. Psych cooperative and affect normal Weight / BMI Weight Weight: 157 lb 13.616 oz Body Mass Index (BMI) 34.6 ABG / Lab / Microbiology Data Result Diagrams: 03/16/22 05:38 03/16/22 05:38 D/C Instructions Discharge Diet: - (Regular diet with increased fiber.) Ice area for (Minutes): 15 Weight Bearing Status: Full weight bearing Call your doctor if your incision/area has: Sudden Increased Bleeding, Increased Pain/ Swelling, Increased Redness, Foul Smelling Discharge and Swelling at the incision site Call your doctor if you observe: Fever of 101 or Higher, Numbness or Tingling, Shortness of breath, Dizziness, Fainting spells, Chest pain, Increased palpitations (irregular heartbeat) and Calf discomfort Suture Line Care: Avoid Pulling/Pushing and Avoid Pinching/Bending Cleanse incision/area with: Soap & Water and - (Can leave open to air or if more comfortable cover the incision with a dry dressing. ) Pending Tests Upon Discharge: none Please Follow Up With: Dr. Shrestha Meaningful Use Info Meaningful Use Diagnoses (Choose all that apply): None applicable Discharge Plan Admission Admit Date/Time: 03/04/22 17:30 Primary Reason for Your Visit: Debility due to neck fracture with cervical fusion Attending Provider: Mandy Garcia Primary Care Provider: Leland Correia Instructions Patient Instructions: Epilepsy: Safety During a Seizure, Tilt Table Testing, Orthostatic Hypotension Additional Instructions / Restrictions: 1. You have been a great patient Chris. You worked hard and we all enjoyed working with you. If you ever need our services again we will be glad to welcome you back. 2. You had 2 events while on rehab. One event was definitely a seizure and the other I am not sure. You had been standing for a long period of time and your eyes rolled back in your head and you were assisted to the floor. You had no seizure activity. In both events your BP was much lower than normal right after the event. It could be that your BP drops or you have a problem with the rhythm of your heart and that is what causes the event. I am going to order a tilt table test. I am giving you some literature to read about this prior to the test so you know what to expect. I am also going to order a monitor that keeps track of your heart rate continuously for 30 days and after that you will see the printer assistant to give you the results. 3. I am going to recommend to Dr. Correia that you have your Dilantin level checked every week for 3-4 weeks in a row to make sure the level is therapeutic and not too high or too low. 4. You are going to see the neurologist after leaving rehab. His name is Dr. Pepe and he is very nice. Dr. Afshin Cronin's physician therapy assistant will be in the room at the time you see Dr. Pepe and after the first visit you will likely just see Roseanne for your appointments. 5. I think we MUST find out why you are having these falls because you have now broken your neck twice. If you are having seizures there are other meds that can be tried and if your fainting because your BP drops when you stand then there are other things that can be done to prevent this. 6. Take care Chris and if you have any questions after leaving rehab please call me. 7. I am also going to recommend to Dr. Correia that you have a bone density test called a DEXA. We do them here at the hospital since you have had fractures. This will assess you for osteoporosis which weakens the bones and can be treated to strengthen the bones so they do not fracture as easily. Office: [phone] CELL: [phone] Discharge Orders/Prescriptions Prescriptions: New acetaminophen 500 mg Tablet 1,000 mg PO Q8 PRN (Reason: fever or pain) Qty: 0 RF: 0 lidocaine 5 % Adhesive Patch,Medicated 1 patch topical DAILY Qty: 30 RF: 0 lisinopril 2.5 mg Tablet 2.5 mg PO DAILY Qty: 30 RF: 0 oxycodone 5 mg Tablet 5 - 10 mg PO QHS 7 Days Qty: 30 RF: 0 sennosides-docusate sodium [Stool Softener-Stimulant Laxat] 8.6-50 mg Tablet 2 tab PO BID Qty: 120 RF: 0 Biotene Dry Mouth Oral Rinse Mouthwash 15 ml mucous membrane 5X/DAY Qty: 1 RF: 0 trazodone 50 mg Tablet 50 mg PO QHS PRN (Reason: insomnia) Qty: 30 RF: 0 Continued levetiracetam 500 MG tablet 1,500 mg PO BID RF: 0 phenytoin sodium extended 100 MG capsule 100 mg PO BID RF: 0 citalopram 20 MG tablet 20 mg PO DAILY RF: 0 atenolol 25 mg Tablet 25 mg PO QHS RF: 0 levothyroxine 150 mcg Tablet 150 mcg PO DAILY RF: 0 omeprazole 20 mg Capsule,Delayed Release(Dr/Ec) 20 mg PO DAILY RF: 0 aspirin 81 mg Tablet,Chewable 81 mg PO DAILY RF: 0 ergocalciferol (vitamin D2) [Vitamin D2] 1,250 mcg (50,000 unit) Capsule 1,250 mcg PO QWEEK RF: 0 No Action oxycodone 5 mg Tablet 5 mg PO Q6H PRN (Reason: Pain) RF: 0 Referrals / Follow Up: Dr Kenyetta Evans [Other] (Office to call patient to schedule. There is a waitlist at this time. ) Frank Shrestha MD [NON-STAFF] - 03/19/22 2:30 pm (Lashonda to be removed at appt. Please bring discharge summary to appt.) Leland Correia DO [Primary Care Provider] - 03/21/22 10:20 am Mansoor Pepe MD [STAFF PHYSICIAN] - 05/01/22 9:00 am Disposition Disposition (needs filled in before D/C Order can be placed): Home Health Service Charges/Coding Visit Charges Inpatient E&M: 95499 Disch Hosp
--- NOTE | 2022-03-17 19:51 | NURSING ---
Pt called the nurses station to report having two small seizures each lasting less than 1 min. She was sitting in a chair beside her . She did not lose consciousness, reported facial grimice and hand clinching. VS were taken and recorded, Dr. Garcia was notified via text. No new orders. She is scheduled to have a dilantin level drawn tomorrow morning. Will continue to monitor and keep safety precautions in place.
[2022-03-17 19:53] VITALS: BP 138/51; PULSE 63; RESP 16; TEMP 36.4; O2SAT 95
[2022-03-17] MEDS: traZODone 50 MG Tablet PO (21:47)
[2022-03-17] MEDS: oxyCODONE 5 MG Tablet 10 MG PO (21:48)
[2022-03-17] MEDS: Atenolol 25 MG Tablet PO (21:48)
[2022-03-17] MEDS: Phenytoin Na 100 MG Capsule 150 MG PO (21:59)
--- NOTE | 2022-03-17 22:06 | NURSING ---
Spoke to Jay in pharmacy regarding dilantin order, order is for 150 mg, and it comes in capsules. Instructions say give 1.5 capsules and that is not able to be done with capsules. Pharmacy recommended I just give her one tonight and she can get her meds from home if she is not discharged tomorrow as scheduled. I did tell the patient.
[2022-03-18] MEDS: Enoxaparin 40 MG/0.4 ML Syringe SC (05:21)
[2022-03-18] MEDS: Acetaminophen 500 MG Tablet 1000 MG PO (05:21)
[2022-03-18 07:18] LABS: Albumin, Serum 3.3 g/dL (3.2-5.0)
[2022-03-18 07:23] LABS: Phenytoin (Dilantin) Level 11.8 mL (10.0-20.0)
[2022-03-18] MEDS: Phenytoin Na 100 MG Capsule PO (07:39)
[2022-03-18] MEDS: Aspirin 81 MG TAB.CHEW PO (07:40)
[2022-03-18 07:54] VITALS: BP 152/58; PULSE 65; RESP 16; TEMP 36.3; O2SAT 98
[2022-03-18] MEDS: Lisinopril 2.5 MG Tablet PO (10:00)
[2022-03-18] MEDS: levETIRAcetam 750 MG Tablet 1500 MG PO (10:00)
[2022-03-18] MEDS: Pantoprazole Sodium 20 MG Tablet PO (10:00)
[2022-03-18] MEDS: Citalopram 20 MG Tablet PO (10:00)
[2022-03-18] MEDS: Senna/Docusate Sodium 1 Tablet 2 TABLET PO (10:00)
[2022-03-18 13:45] VITALS: BP 152/58; PULSE 65; RESP 16; TEMP 36.3; O2SAT 98
--- NOTE | 2022-03-18 13:45 | NURSING ---
Discharge to home with present. Patient aware she will have to come tomorrow to get scripts filled bc pharmacy is closed.
== END 2022-03-18 13:45 | disposition home health service (06) | DRG 560 ==
PROVIDERS: Admitting Provider Internal Medicine; PCP Family Medicine; Visit Provider Internal Medicine
DX: S12.400D Unspecified displaced fracture of fifth cervical vertebra, subsequent encounter for fracture with routine healing (principal); D62 Acute posthemorrhagic anemia; D69.6 Thrombocytopenia, unspecified; G40.909 Epilepsy, unspecified, not intractable, without status epilepticus; E83.39 Other disorders of phosphorus metabolism; W07.XXXD Fall from chair, subsequent encounter; E03.9 Hypothyroidism, unspecified; I10 Essential (primary) hypertension; H57.02 Anisocoria; M19.90 Unspecified osteoarthritis, unspecified site; M75.22 Bicipital tendinitis, left shoulder; Z98.1 Arthrodesis status; S12.500D Unspecified displaced fracture of sixth cervical vertebra, subsequent encounter for fracture with routine healing; Z79.899 Other long term (current) drug therapy; Z79.890 Hormone replacement therapy; E66.9 Obesity, unspecified; Z68.34 Body mass index [BMI] 34.0-34.9, adult; T42.0X Poisoning by, adverse effect of and underdosing of hydantoin derivatives
CPT/HCPCS: 36415; 73030; 80048; 80053; 80185; 82040; 82306; 83036; 83735; 84100; 84439; 84443; 85014; 85018; 85027; 92507; 92523; 96125; 97035; 97110; 97116; 97129; 97130; 97162; 97166; 97530; 97535; 97802; 99251; G0463

== ENCOUNTER → 2022-03-22 | Outpatient (CLI) | payer MEDICARE, OTHER, SELFPAY | END | disposition home or self-care (01) | LOC: CVS 08:53 | PROVIDERS: PCP Family Medicine; Referring Provider Internal Medicine; Visit Provider Internal Medicine | DX: I95.1 Orthostatic hypotension (principal) | CPT/HCPCS: J7040; A4216 ==

== ENCOUNTER → 2022-08-13 | Outpatient (CLI) | payer MEDICARE, OTHER, SELFPAY ==
--- NOTE | 2022-08-13 13:05 | MRI_ITS ---
STUDY: MRI BRAIN WITH AND WITHOUT CONTRAST REASON FOR EXAM: Female, 67 years old. Epilepsy; cerebellar atrophy; long-term phenytoin TECHNIQUE: Standardized multiplanar fat and water weighted pulse sequences were obtained. 14ML IV CLARISCAN was administered for the contrast portion of the examination. COMPARISON: None. FINDINGS: Mild cerebral atrophy and periventricular white matter ischemic change without mass effect or restricted diffusion.. Normal bilateral basal ganglia. Normal thalami. There is no extra-axial fluid accumulation. Normal flow voids within the major intracranial circulation suggesting patency by spin echo criteria. Normal venous enhancement. There is diffusely hypoplastic right vertebral. The left vertebral is dominant and normal caliber There is no enhancing intra-axial or extra-axial abnormality. Normal sella turcica, pituitary gland, infundibular stalk, optic chiasm and hypothalamus. Normal tectal plate and pineal gland. Normal midbrain, tamie and medulla. Moderate to severe cerebellar atrophy. Normal basal cisterns. Normal bilateral temporal bones. Normal bilateral internal auditory canals. Postsurgical changes of the orbits. Minor mucosal thickening of left maxillary sinus.. Normal calvarium and skull base. Normal visualized soft tissue structures. Normal visualized upper cervical spine. MRI/Brain W/WO Contrast IMPRESSION: Mild cerebral and moderate to severe diffuse cerebellar atrophy consistent with long-term anticonvulsant utilization.. Mild periventricular matter ischemic change without evidence for acute infarct. No enhancing lesions following contrast administration Electronically Signed: Nick Sutherland MD at 16:10 EDT ,
[2022-08-13 14:01] LABS: CREATININE FINGERSTICK < 0.9 mg/dL (0.55-1.02); EGFR FINGERSTICK > 60.0000 mL/min (>60)
== END | disposition home or self-care (01) ==
LOC: MRI 13:05
PROVIDERS: PCP Family Medicine; Referring Provider Psychiatry & Neurology Neurology; Visit Provider Psychiatry & Neurology Neurology
DX: G40.909 Epilepsy, unspecified, not intractable, without status epilepticus (principal); Z79.899 Other long term (current) drug therapy
CPT/HCPCS: 70553; A9575

== ENCOUNTER → 2022-08-16 | Outpatient (CLI) | payer MEDICARE, OTHER, SELFPAY ==
--- NOTE | 2022-08-16 09:12 | TELEMED_ITS ---
[facility] has confirmed receipt of a request for visit. This document confirms receipt of the order initiating the consult. To find the results of the consultation, please view the patient's reports for the scanned Telemed Consult.
== END | disposition home or self-care (01) ==
LOC: MRI 08:06 → PSN 08:09
PROVIDERS: PCP Family Medicine; Referring Provider Psychiatry & Neurology Neurology; Visit Provider Psychiatry & Neurology Neurology
DX: G40.909 Epilepsy, unspecified, not intractable, without status epilepticus (principal)
CPT/HCPCS: 95819

== ENCOUNTER → 2022-08-30 | Outpatient (CLI) | payer MEDICARE, OTHER, SELFPAY ==
[2022-08-30 10:05] LABS: Vitamin B12 391 pg/mL (211-911)
[2022-08-30 10:14] LABS: Phenytoin (Dilantin) Level 15.1 mL (10.0-20.0)
[2022-08-30 10:16] LABS: ALB/GLOB Ratio 0.7 RATIO (0.9-2.4); AST(SGOT) 32 U/L (15-37); Alanine Aminotransfer ALT/SGPT 29 U/L (13-56); Albumin, Serum 3.2 g/dL (3.2-5.0); Alkaline Phosphatase 155 U/L (45-117); Anion Gap 5 (5-15); BUN 13 mg/dL (7-18); BUN/Creat Ratio 16.8 RATIO (10-20); Calcium,Total 8.9 mg/dL (8.5-10.1); Chloride 108 mmol/L (98-107); Creatinine, Serum 0.78 mg/dL (0.55-1.02); EST Glomerular Filtration Rate 79 mL/min (>60); Est Glom Filt Rate - Afr Amer 95 mL/min (>60); Globulin 4.3 g/dL (2.2-4.2); Glucose 132 mg/dL (74-106); Potassium 4.2 mmol/L (3.5-5.1); Protein, Total 7.5 g/dL (6.4-8.2); Sodium Level 140 mmol/L (136-145)
[2022-09-04 16:09] LABS: Free Kappa Light Chains 28.5 mg/L (3.3-19.4); Free Lambda Light Chains 25.8 mg/L (5.7-26.3); Vitamin B1, Thiamine 137.5 nmol/L (66.5-200.0)
[2022-09-05 16:42] LABS: Trileptal-Oxcarbazepine 3 ug/mL (10-35)
== END | disposition home or self-care (01) ==
LOC: LAB 09:14
PROVIDERS: PCP Family Medicine; Referring Provider Psychiatry & Neurology Neurology; Visit Provider Psychiatry & Neurology Neurology
DX: G40.909 Epilepsy, unspecified, not intractable, without status epilepticus (principal); G62.9 Polyneuropathy, unspecified
CPT/HCPCS: 36415; 80053; 80177; 80185; 82140; 82542; 82607; 82746; 83883; 84425

== ENCOUNTER → 2023-02-01 | Outpatient (CLI) | payer MEDICARE, OTHER, SELFPAY ==
[2023-02-01 12:11] LABS: Hematocrit 39.1 % (37-47); Mean Corp Hgb Conc 33.2 g/dL (32-36); Mean Corpuscular Hgb 31.2 pg (27.0-32.0); Mean Corpuscular Volume 93.8 fL (81-99); Mean Platelet Vol. 10.2 fl (6.2-12.0); Platelet Count 193 K/mm3 (150-450); RBC Distribution Width CV 12.6 % (11.6-14.6); RBC Distribution Width SD 43.6 fl (35.1-43.9); Red Blood Count 4.17 M/mm3 (4.2-5.4); White Blood Count 5.6 K/mm3 (4.4-11.0)
[2023-02-01 12:35] LABS: ALB/GLOB Ratio 0.8 RATIO (0.9-2.4); AST(SGOT) 25 U/L (15-37); Alanine Aminotransfer ALT/SGPT 23 U/L (13-56); Albumin, Serum 3.2 g/dL (3.2-5.0); Alkaline Phosphatase 144 U/L (45-117); Anion Gap 9 (5-15); BUN 23 mg/dL (7-18); BUN/Creat Ratio 24.2 RATIO (10-20); Calcium,Total 8.8 mg/dL (8.5-10.1); Chloride 104 mmol/L (98-107); Creatinine, Serum 0.95 mg/dL (0.55-1.02); EST Glomerular Filtration Rate 62 mL/min (>60); Est Glom Filt Rate - Afr Amer 75 mL/min (>60); Globulin 3.9 g/dL (2.2-4.2); Glucose 162 mg/dL (74-106); Potassium 4.1 mmol/L (3.5-5.1); Protein, Total 7.1 g/dL (6.4-8.2); Sodium Level 141 mmol/L (136-145)
[2023-02-04 14:08] LABS: Albumin 3.1 g/dL (2.9-4.4); Alpha-1-Globulins 0.3 g/dL (0.0-0.4); Gamma Globulin 1.1 g/dL (0.4-1.8); Immunoglobulin A 136 mg/dL (87-352); Immunoglobulin G 1137 mg/dL (586-1602); Immunoglobulin M 150 mg/dL (26-217); PROEL- TOTAL PROTEIN 6.5 g/dL (6.0-8.5)
[2023-02-04 18:46] LABS: Trileptal-Oxcarbazepine 13 ug/mL (10-35)
== END | disposition home or self-care (01) ==
LOC: LAB 11:38
PROVIDERS: PCP Family Medicine; Visit Provider Psychiatry & Neurology Neurology
DX: G40.909 Epilepsy, unspecified, not intractable, without status epilepticus (principal); G62.9 Polyneuropathy, unspecified
CPT/HCPCS: 36415; 80053; 82542; 82784; 84165; 85027; 86334; 86335

== ENCOUNTER → 2023-02-18 | Outpatient (CLI) | payer MEDICARE, OTHER, SELFPAY ==
[2023-02-18 09:38] LABS: Sodium Level 138 mmol/L (136-145)
[2023-02-18 09:48] LABS: Vitamin B12 469 pg/mL (211-911)
[2023-02-20 21:21] LABS: Trileptal-Oxcarbazepine 27 ug/mL (10-35)
== END | disposition home or self-care (01) ==
PROVIDERS: PCP Family Medicine; Referring Provider Psychiatry & Neurology Neurology; Visit Provider Psychiatry & Neurology Neurology
DX: G40.909 Epilepsy, unspecified, not intractable, without status epilepticus (principal); G62.9 Polyneuropathy, unspecified
CPT/HCPCS: 36415; 82542; 82607; 84295

== ENCOUNTER → 2023-06-25 | Outpatient (CLI) | payer MEDICARE, OTHER, SELFPAY ==
[2023-06-25 12:36] LABS: Hematocrit 42.6 % (37-47); Hemoglobin 13.8 g/dL (12.0-15.0); Mean Corp Hgb Conc 32.4 g/dL (32-36); Mean Corpuscular Hgb 29.1 pg (27.0-32.0); Mean Corpuscular Volume 89.7 fL (81-99); Mean Platelet Vol. 10.1 fl (6.2-12.0); Platelet Count 204 K/mm3 (150-450); RBC Distribution Width CV 13.1 % (11.6-14.6); RBC Distribution Width SD 42.9 fl (35.1-43.9); Red Blood Count 4.75 M/mm3 (4.2-5.4); White Blood Count 4.8 K/mm3 (4.4-11.0)
[2023-06-25 13:20] LABS: ALB/GLOB Ratio 0.8 RATIO (0.9-2.4); AST(SGOT) 14 U/L (15-37); Alanine Aminotransfer ALT/SGPT 15 U/L (13-56); Albumin, Serum 3.2 g/dL (3.2-5.0); Alkaline Phosphatase 128 U/L (45-117); Anion Gap 3 (5-15); BUN 20 mg/dL (7-18); BUN/Creat Ratio 17.9 RATIO (10-20); Calcium,Total 8.8 mg/dL (8.5-10.1); Chloride 107 mmol/L (98-107); Creatinine, Serum 1.12 mg/dL (0.55-1.02); EST Glomerular Filtration Rate 51 mL/min (>60); Est Glom Filt Rate - Afr Amer 62 mL/min (>60); Globulin 4.1 g/dL (2.2-4.2); Glucose 170 mg/dL (74-106); Potassium 4.3 mmol/L (3.5-5.1); Protein, Total 7.3 g/dL (6.4-8.2); Sodium Level 137 mmol/L (136-145)
[2023-06-28 06:09] LABS: Trileptal-Oxcarbazepine 34 ug/mL (10-35)
== END | disposition home or self-care (01) ==
LOC: LABSPEC 11:56
PROVIDERS: PCP Family Medicine; Referring Provider Psychiatry & Neurology Neurology; Visit Provider Psychiatry & Neurology Neurology
DX: G40.909 Epilepsy, unspecified, not intractable, without status epilepticus (principal)
CPT/HCPCS: 36415; 80053; 82542; 85027

== ENCOUNTER → 2023-10-11 | Outpatient (CLI) | payer MEDICARE, OTHER, SELFPAY ==
[2023-10-11 09:19] LABS: Hematocrit 43.2 % (37-47); Hemoglobin 14.5 g/dL (12.0-15.0); Mean Corp Hgb Conc 33.6 g/dL (32-36); Mean Corpuscular Hgb 29.8 pg (27.0-32.0); Mean Corpuscular Volume 88.7 fL (81-99); Mean Platelet Vol. 10.5 fl (6.2-12.0); Platelet Count 175 K/mm3 (150-450); RBC Distribution Width SD 42.4 fl (35.1-43.9); Red Blood Count 4.87 M/mm3 (4.2-5.4); White Blood Count 5.7 K/mm3 (4.4-11.0)
[2023-10-11 09:34] LABS: ALB/GLOB Ratio 0.9 RATIO (0.9-2.4); AST(SGOT) 21 U/L (15-37); Alanine Aminotransfer ALT/SGPT 18 U/L (13-56); Albumin, Serum 3.5 g/dL (3.2-5.0); Alkaline Phosphatase 125 U/L (45-117); Anion Gap 0 (5-15); BUN 23 mg/dL (7-18); BUN/Creat Ratio 21.7 RATIO (10-20); Calcium,Total 8.7 mg/dL (8.5-10.1); Chloride 109 mmol/L (98-107); Creatinine, Serum 1.06 mg/dL (0.55-1.02); EST Glomerular Filtration Rate 55 mL/min (>60); Est Glom Filt Rate - Afr Amer 66 mL/min (>60); Globulin 3.9 g/dL (2.2-4.2); Glucose 143 mg/dL (74-106); Potassium 4.8 mmol/L (3.5-5.1); Protein, Total 7.4 g/dL (6.4-8.2); Sodium Level 138 mmol/L (136-145)
[2023-10-11 09:41] LABS: Hemoglobin A1c 6.2 % (3.8-5.6)
[2023-10-11 10:05] LABS: Ammonia < 10.0 umol/L (11-32)
[2023-10-16 15:08] LABS: KEPPRA (LEVETIRACETAM) 64.8 ug/mL (10.0-40.0); Trileptal-Oxcarbazepine 28 ug/mL (10-35)
== END | disposition home or self-care (01) ==
PROVIDERS: PCP Family Medicine; Referring Provider Psychiatry & Neurology Neurology; Visit Provider Psychiatry & Neurology Neurology
DX: G40.909 Epilepsy, unspecified, not intractable, without status epilepticus (principal); R73.9 Hyperglycemia, unspecified
CPT/HCPCS: 36415; 80053; 80177; 82140; 82542; 83036; 85027

== ENCOUNTER → 2024-07-10 | Outpatient (CLI) | payer MEDICARE, OTHER, SELFPAY ==
[2024-07-10 09:23] LABS: Hematocrit 40.2 % (37-47); Hemoglobin 13.4 g/dL (12.0-15.0); Mean Corp Hgb Conc 33.3 g/dL (32-36); Mean Corpuscular Hgb 29.8 pg (27.0-32.0); Mean Corpuscular Volume 89.5 fL (81-99); Mean Platelet Vol. 10.4 fl (6.2-12.0); Platelet Count 176 K/mm3 (150-450); RBC Distribution Width CV 13.1 % (11.6-14.6); RBC Distribution Width SD 42.5 fl (35.1-43.9); Red Blood Count 4.49 M/mm3 (4.2-5.4); White Blood Count 6.8 K/mm3 (4.4-11.0)
[2024-07-10 09:46] LABS: ALB/GLOB Ratio 0.9 RATIO (0.9-2.4); AST(SGOT) 21 U/L (15-37); Alanine Aminotransfer ALT/SGPT 23 U/L (13-56); Albumin, Serum 3.5 g/dL (3.2-5.0); Alkaline Phosphatase 111 U/L (45-117); Anion Gap 4 (5-15); BUN 23 mg/dL (7-18); BUN/Creat Ratio 24.1 RATIO (10-20); Calcium,Total 8.9 mg/dL (8.5-10.1); Chloride 109 mmol/L (98-107); Creatinine, Serum 0.95 mg/dL (0.55-1.02); EST Glomerular Filtration Rate 62 mL/min (>60); Est Glom Filt Rate - Afr Amer 74 mL/min (>60); Globulin 3.9 g/dL (2.2-4.2); Glucose 148 mg/dL (74-106); Potassium 4.3 mmol/L (3.5-5.1); Protein, Total 7.4 g/dL (6.4-8.2); Sodium Level 140 mmol/L (136-145)
[2024-07-14 12:00] LABS: KEPPRA (LEVETIRACETAM) 43.6 ug/mL (10.0-40.0); Trileptal-Oxcarbazepine 29 ug/mL (10-35)
== END | disposition home or self-care (01) ==
PROVIDERS: PCP Family Medicine; Referring Provider Psychiatry & Neurology Neurology; Visit Provider Psychiatry & Neurology Neurology
DX: G40.909 Epilepsy, unspecified, not intractable, without status epilepticus (principal)
CPT/HCPCS: 36415; 80053; 80177; 82140; 82542; 85027

== ENCOUNTER → 2025-02-01 | Outpatient (CLI) | payer MEDICARE, OTHER, SELFPAY ==
[2025-02-01 08:44] LABS: Hematocrit 40.1 % (37-47); Hemoglobin 13.7 g/dL (12.0-15.0); Mean Corp Hgb Conc 34.2 g/dL (32-36); Mean Corpuscular Volume 90.7 fL (81-99); Mean Platelet Vol. 10.8 fl (6.2-12.0); Platelet Count 176 K/mm3 (150-450); RBC Distribution Width CV 12.5 % (11.6-14.6); RBC Distribution Width SD 41.5 fl (35.1-43.9); Red Blood Count 4.42 M/mm3 (4.2-5.4); White Blood Count 7.1 K/mm3 (4.4-11.0)
[2025-02-01 09:01] LABS: Ammonia 18.3 umol/L (11-51)
[2025-02-01 09:33] LABS: ALB/GLOB Ratio 1.3 RATIO (0.9-2.4); AST(SGOT) 27 U/L (<=31); Alanine Aminotransfer ALT/SGPT 17 U/L (<=34); Albumin, Serum 4.1 g/dL (3.4-4.8); Alkaline Phosphatase 117 U/L (35-104); Anion Gap 13 (5-15); BUN 31 mg/dL (4-19); BUN/Creat Ratio 23.5 RATIO (10-20); Calcium 8.9 mg/dL (7.6-11.0); Carbon Dioxide 23.4 mmol/L (22.0-29.0); Chloride 105 mmol/L (96-108); Creatinine, Serum 1.33 mg/dL (0.70-1.20); EST Glomerular Filtration Rate 43 (>60); Globulin 3.3 g/dL (2.2-4.2); Glucose 155 mg/dL (70-99); Potassium 4.1 mmol/L (3.3-5.1); Protein, Total 7.4 g/dL (5.9-8.4); Sodium Level 141 mmol/L (133-145); Total Bilirubin 0.23 mg/dL (0.00-1.30)
[2025-02-08 14:15] LABS: KEPPRA (LEVETIRACETAM) 56.3 ug/mL (10.0-40.0); Trileptal-Oxcarbazepine 34 ug/mL (10-35)
== END | disposition home or self-care (01) ==
LOC: LAB 08:14
PROVIDERS: PCP Family Medicine; Referring Provider Psychiatry & Neurology Neurology; Visit Provider Psychiatry & Neurology Neurology
DX: G40.909 Epilepsy, unspecified, not intractable, without status epilepticus (principal)
CPT/HCPCS: 80053; 80177; 82140; 82542; 85027

== ENCOUNTER → 2025-07-22 | Outpatient (CLI) | payer MEDICARE, OTHER, SELFPAY ==
[2025-07-22 10:05] LABS: Hematocrit 40.5 % (37-47); Hemoglobin 13.6 g/dL (12.0-15.0); Mean Corp Hgb Conc 33.6 g/dL (32-36); Mean Corpuscular Volume 90.8 fL (81-99); Mean Platelet Vol. 10.7 fl (6.2-12.0); Platelet Count 169 K/mm3 (150-450); RBC Distribution Width CV 12.8 % (11.6-14.6); RBC Distribution Width SD 42.2 fl (35.1-43.9); Red Blood Count 4.46 M/mm3 (4.2-5.4); White Blood Count 7.6 K/mm3 (4.4-11.0)
[2025-07-22 10:42] LABS: Ammonia 17.9 umol/L (11-51)
[2025-07-22 10:44] LABS: AST(SGOT) 26 U/L (<=31); Alanine Aminotransfer ALT/SGPT 17 U/L (<=34); Albumin, Serum 4.2 g/dL (3.4-4.8); Alkaline Phosphatase 100 U/L (35-104); Anion Gap 12 (5-15); BUN 25 mg/dL (4-19); BUN/Creat Ratio 19.8 RATIO (10-20); Calcium,Total 9.2 mg/dL (7.6-11.0); Carbon Dioxide 24.7 mmol/L (21.0-32.0); Chloride 102 mmol/L (98-108); Globulin 3.1 g/dL (2.2-4.2); Glucose 167 mg/dL (70-99); Potassium 4.5 mmol/L (3.3-5.1)
== END | disposition home or self-care (01) ==
PROVIDERS: PCP Family Medicine; Referring Provider Psychiatry & Neurology Neurology; Visit Provider Psychiatry & Neurology Neurology
DX: G40.909 Epilepsy, unspecified, not intractable, without status epilepticus (principal); R73.9 Hyperglycemia, unspecified
CPT/HCPCS: 36415; 80053; 80177; 82140; 82542; 83036; 85027